=== PATIENT | female | born 1975 | race Caucasian/White ===

== ENCOUNTER 2018-09-02 08:58 | Inpatient (IN) | payer BC, MEDICAID ==
[~2018-09-02] VITALS: Ht 165.1 cm; Wt 50.9 kg
[~2018-09-02 08:58] MED LIST: SULF1TAB49 PO
[2018-09-02] MEDS ORDERED: metoclopramide 5 mg/ml inj IV ONE (09:25)
[2018-09-02] MEDS ORDERED: ketorolac tromethamine 15mg/ml inj. IV ONE (09:25)
[2018-09-02] MEDS ORDERED: normal saline 1000ML IV soln IVB ONE ×2 (09:25→11:35)
[2018-09-02 10:08] LABS: BASOPHILS % (AUTO) 0 % (0-1); EOSINOPHILS # (AUTO) 0.3 X10'3 (0-0.9); EOSINOPHILS % (AUTO) 1.4 % (0-6); HEMATOCRIT 47.5 % (35.0-45.0); HEMOGLOBIN 15.4 g/dl (12.0-16.0); LYMPHOCYTES # (AUTO) 0.5 X10'3 (1.1-4.8); LYMPHOCYTES % (AUTO) 2.6 % (21-51); MEAN CORPUSCULAR HGB CONC 32.4 % (33.0-36.5); MEAN CORPUSCULAR VOLUME 89.3 FL (78-98); MEAN PLATELET VOLUME 8.9 FL (7.4-10.4); MONOCYTES # (AUTO) 0.9 X10'3 (0-0.9); MONOCYTES % (AUTO) 4.5 % (2-12); NEUTROPHILS # (AUTO) 17.6 X10'3 (1.8-7.7); NEUTROPHILS % (AUTO) 91.5 % (42-75); PLATELET COUNT 314 X10'3 (140-440); RED BLOOD COUNT 5.32 X10'6 (4.20-5.60); RED CELL DISTRIBUTION WIDTH 13.8 % (11.5-14.5); WHITE BLOOD COUNT 19.3 X10'3 (4.5-11.0)
[2018-09-02 11:19] LABS: ALANINE AMINOTRANSFERASE 41 U/L (12-78); ALBUMIN 3.2 G/DL (3.4-5.0); ALKALINE PHOSPHATASE 84 IU/L (46-116); ANION GAP 26 (8-16); ASPARTATE AMINO TRANSFERASE 30 U/L (10-37); BILIRUBIN,TOTAL 0.9 MG/DL (0.1-1.0); BLOOD UREA NITROGEN 16 MG/DL (7-18); BUN/CREATININE RATIO 16.2 (6.6-38.0); CALCIUM 6.7 MG/DL (8.5-10.1); CHLORIDE 106 MMOL/L (99-107); CREATININE 0.99 MG/DL (0.40-0.90); GLUCOSE 326 MG/DL (70-104); LIPASE 253 U/L (73-393); POTASSIUM 5.4 MMOL/L (3.5-5.1); SODIUM 139 MMOL/L (135-145); TOTAL PROTEIN 6.5 G/DL (6.4-8.2); eGFR 61 ML/MIN
[2018-09-02 11:22] LABS: TOTAL CARBON DIOXIDE 7.5 MMOL/L (24-32)
[2018-09-02] MEDS ORDERED: iohexol 300mg/ml 100ml inj. ONE (11:28)
[2018-09-02 11:29] LABS: URINE HCG NEGATIVE (NEG)
[2018-09-02 11:32] LABS: CLARITY,URINE CLEAR (Clear); COLOR,URINE STRAW (Yellow); GLUCOSE, URINE 500 mg/dl (Neg); KETONES,URINE >=80 mg/dl (Neg); LEUKOCYTE ESTERASE ,URINE NEGATIVE (Neg); NITRITES, URINE NEGATIVE (Neg); OCCULT BLOOD,URINE MODERATE (Neg); PH,URINE 5.5 (4.8-8.0); PROTEIN,URINE 30 mg/dl (Neg); UROBILINOGEN,URINE 0.2 E.U/dL (0.2-1.0)
[2018-09-02 11:33] LABS: UA COLLECTION TYPE CLN CATCH MIDSTREAM
[2018-09-02] MEDS ORDERED: INSU100I31 SQ (11:37)
[2018-09-02 11:43] LABS: BACTERIA,URINE FEW /HPF (Neg); HYALINE CASTS 0-3 /LPF (NEGATIVE); MUCUS STRANDS NONE SEEN /LPF (Neg); RBC,URINE 0-2 /HPF (0-2); SQUAMOUS EPITHELIAL CELL,UR FEW /LPF (FEW); WBC,URINE 0-4 /HPF (0-4)
[2018-09-02 11:49] LABS: URINE AMPHETAMINE SCREEN NEGATIVE (Neg); URINE BARBITUATE SCREEN NEGATIVE (Neg); URINE BENZODIAZEPINES SCREEN NEGATIVE (Neg); URINE CANNABINOID SCREEN POSITIVE (Neg); URINE COCAINE SCREEN NEGATIVE (Neg); URINE METHADONE SCREEN NEGATIVE (Neg); URINE OPIATE SCREEN NEGATIVE (Neg); URINE PHENCYCLIDINE SCREEN NEGATIVE (Neg)
[2018-09-02 13:30] LABS: ABG BASE EXCESS -22.4 mmol/L (-2.0-3.0); ABG HCO3 3.6 mmol/L (22.0-26.0); ABG OXYGEN SATURATION 97.7 % (95-98); ABG PCO2 (T) 10.3 mmHg (32.0-45.0); ABG PH (T) 7.157 (7.350-7.450); ABG PO2 (T) 122.9 mmHg (83-108); ALLEN'S TEST Positive; FCOHb 0.3 % (0.5-1.5); FMetHb 0.3 % (0.3-1.12); FO2Hb 97.1 % (94-100); TOTAL HEMOGLOBIN 14.4 G/dl (12.0-16.0)
[2018-09-02] MEDS ORDERED: potassium CL 20mEq in D5-1/2NS 1,000 ML IV PRN ×2 (13:57→14:13)
[2018-09-02] MEDS ORDERED: sodium bicarbonate (8.4%) inj. 50 MEQ in dextrose 5% water 500ml 250 ML IV PRN (13:57)
[2018-09-02] MEDS ORDERED: insulin regular, DKA only 100 UNIT in normal saline 100ml IV soln 99 ML IV SCH ×2 (13:57)
[2018-09-02] MEDS ORDERED: sodium bicarbonate (8.4%) inj. 100 MEQ in dextrose 5% water 500ml 500 ML IV PRN (13:57)
[2018-09-02] MEDS ORDERED: potassium Cl 40MEQ/NS 500ml 500 ML IV PRN ×4 (14:00→14:15)
[2018-09-02] MEDS ORDERED: insulin regular, human vial - multi-dose IV PRN ×2 (14:00→14:15)
[2018-09-02] MEDS ORDERED: sodium phosphate inj. 30 MMOL in dextrose 5%-water 250 ML IV PRN ×2 (14:00→16:25)
[2018-09-02] MEDS ORDERED: sodium phosphate inj. 15 MMOL in dextrose 5%-water 150 ML IV PRN ×2 (14:00→16:25)
[2018-09-02] MEDS ORDERED: potassium Cl 20 mEq SR tablet PO PRN ×2 (14:00→14:15)
[2018-09-02] MEDS ORDERED: traMADol 50MG tablet PO PRN (14:15)
[2018-09-02] MEDS: normal saline 1000ml 1,000 ML IV SCH ×4 (14:27→19:21)
[2018-09-02 14:54] LABS: ALBUMIN 3.3 G/DL (3.4-5.0); ANION GAP 27 (8-16); BLOOD UREA NITROGEN 11 MG/DL (7-18); BUN/CREATININE RATIO 12.5 (6.6-38.0); CALCIUM 6.8 MG/DL (8.5-10.1); CHLORIDE 106 MMOL/L (99-107); CREATININE 0.88 MG/DL (0.40-0.90); GLUCOSE 243 MG/DL (70-104); POTASSIUM 4.5 MMOL/L (3.5-5.1); SODIUM 140 MMOL/L (135-145); eGFR 70 ML/MIN
[2018-09-02] MEDS: insulin regular, DKA only 100 UNIT in normal saline 100ml IV soln 99 ML IV SCH ×2 (14:55)
[2018-09-02 15:02] LABS: TOTAL CARBON DIOXIDE 7.1 MMOL/L (24-32)
[2018-09-02 15:03] LABS: PHOSPHORUS 0.9 MG/DL (2.3-4.5)
[2018-09-02] MEDS: dextrose 5%-1/2 normal saline 1,000 ML IV SCH ×2 (15:40→22:20)
[2018-09-02 15:43] LABS: ALBUMIN 3.3 G/DL (3.4-5.0); ANION GAP 26 (8-16); BLOOD UREA NITROGEN 10 MG/DL (7-18); CHLORIDE 105 MMOL/L (99-107); CREATININE 0.83 MG/DL (0.40-0.90); GLUCOSE 229 MG/DL (70-104); MAGNESIUM 1.4 MG/DL (1.5-2.4); SODIUM 140 MMOL/L (135-145); eGFR 75 ML/MIN
[2018-09-02 15:44] LABS: POTASSIUM 4.7 MMOL/L (3.5-5.1)
[2018-09-02 15:47] LABS: PHOSPHORUS 0.7 MG/DL (2.3-4.5); TOTAL CARBON DIOXIDE 8.6 MMOL/L (24-32)
[2018-09-02] MEDS ORDERED: Neutra Phos packet PO PRN (16:25)
[2018-09-02] MEDS: LORazepam 1 MG tablet PO PRN (16:36)
[2018-09-02] MEDS ORDERED: potassium phosphate inj 30 MMOL in dextrose 5%-water 250 ML IV PRN (16:45)
[2018-09-02] MEDS ORDERED: insulin glargine (Lantus) pen - multi-dose SQ SCH (21:00)
[2018-09-02 22:31] LABS: ALBUMIN 2.7 G/DL (3.4-5.0); ANION GAP 15 (8-16); BLOOD UREA NITROGEN 5 MG/DL (7-18); BUN/CREATININE RATIO 6.2 (6.6-38.0); CALCIUM 6.5 MG/DL (8.5-10.1); CHLORIDE 105 MMOL/L (99-107); CREATININE 0.81 MG/DL (0.40-0.90); GLUCOSE 108 MG/DL (70-104); SODIUM 139 MMOL/L (135-145); TOTAL CARBON DIOXIDE 19.3 MMOL/L (24-32); eGFR 77 ML/MIN
[2018-09-02 22:38] LABS: PHOSPHORUS 0.6 MG/DL (2.3-4.5); POTASSIUM 2.5 MMOL/L (3.5-5.1)
[2018-09-02] MEDS ORDERED: POTASSIUM PHOSPHATE IV ONE ×2 (22:50→23:40)
[2018-09-02] MEDS ORDERED: NORMAL SALINE IV ONE ×2 (22:50→23:40)
[2018-09-02 23:00] VITALS: BP 107/68
[2018-09-02] MEDS ORDERED: sodium phosphate inj. 30 MMOL in dextrose 5%-water 250 ML IV ONE (23:10)
[2018-09-03] MEDS: potassium CL 20mEq in D5-1/2NS 1,000 ML IV SCH ×5 (00:20→21:30)
[2018-09-03] MEDS: normal saline 1000ml 1,000 ML IV SCH ×3 (00:27→09:57)
[2018-09-03 03:00] VITALS: BP 106/72
[2018-09-03 03:48] LABS: BASOPHILS % (AUTO) 0.1 % (0-1); EOSINOPHILS # (AUTO) 0.1 X10'3 (0-0.9); EOSINOPHILS % (AUTO) 1.2 % (0-6); HEMATOCRIT 36.7 % (35.0-45.0); HEMOGLOBIN 12.5 g/dl (12.0-16.0); LYMPHOCYTES # (AUTO) 1.5 X10'3 (1.1-4.8); LYMPHOCYTES % (AUTO) 13.1 % (21-51); MEAN CORPUSCULAR HEMOGLOBIN 29.1 PG (27.0-31.0); MEAN CORPUSCULAR HGB CONC 34.1 % (33.0-36.5); MEAN CORPUSCULAR VOLUME 85.5 FL (78-98); MEAN PLATELET VOLUME 7.9 FL (7.4-10.4); MONOCYTES # (AUTO) 0.4 X10'3 (0-0.9); MONOCYTES % (AUTO) 3.7 % (2-12); NEUTROPHILS # (AUTO) 9.6 X10'3 (1.8-7.7); NEUTROPHILS % (AUTO) 81.9 % (42-75); PLATELET COUNT 166 X10'3 (140-440); RED CELL DISTRIBUTION WIDTH 13.7 % (11.5-14.5); WHITE BLOOD COUNT 11.8 X10'3 (4.5-11.0)
[2018-09-03] MEDS ORDERED: potassium phosphate inj 30 MMOL in dextrose 5%-water 250 ML IV ONE (04:00)
[2018-09-03 04:07] LABS: ALANINE AMINOTRANSFERASE 32 U/L (12-78); ALBUMIN 2.7 G/DL (3.4-5.0); ALBUMIN/GLOBULIN RATIO 0.9 (1.1-1.5); ALKALINE PHOSPHATASE 65 IU/L (46-116); ANION GAP 11 (8-16); ASPARTATE AMINO TRANSFERASE 29 U/L (10-37); BILIRUBIN,TOTAL 0.7 MG/DL (0.1-1.0); BLOOD UREA NITROGEN 3 MG/DL (7-18); BUN/CREATININE RATIO 4.3 (6.6-38.0); CALCIUM 6.6 MG/DL (8.5-10.1); CHLORIDE 103 MMOL/L (99-107); CREATININE 0.69 MG/DL (0.40-0.90); GLUCOSE 152 MG/DL (70-104); PHOSPHORUS 2.3 MG/DL (2.3-4.5); SODIUM 137 MMOL/L (135-145); TOTAL CARBON DIOXIDE 22.9 MMOL/L (24-32); TOTAL PROTEIN 5.7 G/DL (6.4-8.2); eGFR > 90 ML/MIN
[2018-09-03 04:11] LABS: MAGNESIUM 0.9 MG/DL (1.5-2.4); POTASSIUM 2.9 MMOL/L (3.5-5.1)
[2018-09-03] MEDS: dextrose 5%-1/2 normal saline 1,000 ML IV SCH (04:50)
[2018-09-03] MEDS ORDERED: magnesium 4gm in 100ml NS 100 ML IV PRN ×2 (04:55→12:15)
[2018-09-03] MEDS: LORazepam 1 MG tablet PO PRN (07:10)
[2018-09-03 07:35] VITALS: BP 106/73
[2018-09-03] MEDS ORDERED: K and/or MAG REPLACEMENT MC SCH (08:00)
[2018-09-03] MEDS: LIDOcaine 1% 30ml vial 5 ML in potassium Cl 40MEQ/NS 500ml 500 ML IV PRN ×2 (08:09→12:54)
[2018-09-03] MEDS: insulin regular, DKA only 100 UNIT in normal saline 100ml IV soln 99 ML IV SCH ×4 (08:10→11:23)
[2018-09-03] MEDS: K and/or MAG REPLACEMENT MC SCH (08:57)
[2018-09-03] MEDS ORDERED: potassium Cl 20 mEq SR tablet PO PRN ×2 (09:35)
[2018-09-03] MEDS ORDERED: potassium Cl 40MEQ/NS 500ml 500 ML IV PRN ×4 (09:35→12:15)
[2018-09-03 09:46] LABS: ABG BASE EXCESS -1.1 mmol/L (-2.0-3.0); ABG HCO3 20.7 mmol/L (22.0-26.0); ABG OXYGEN SATURATION 97.6 % (95-98); ABG PCO2 (T) 26.9 mmHg (32.0-45.0); ABG PH (T) 7.504 (7.350-7.450); ABG PO2 (T) 87.6 mmHg (83-108); ALLEN'S TEST Positive; FMetHb 0.1 % (0.3-1.12); FO2Hb 97.5 % (94-100); TOTAL HEMOGLOBIN 12.8 G/dl (12.0-16.0)
[2018-09-03 09:59] LABS: ALBUMIN 2.6 G/DL (3.4-5.0); ANION GAP 11 (8-16); BLOOD UREA NITROGEN 2 MG/DL (7-18); BUN/CREATININE RATIO 3.4 (6.6-38.0); CALCIUM 6.6 MG/DL (8.5-10.1); CHLORIDE 104 MMOL/L (99-107); CREATININE 0.58 MG/DL (0.40-0.90); MAGNESIUM 1.4 MG/DL (1.5-2.4); SODIUM 138 MMOL/L (135-145); TOTAL CARBON DIOXIDE 23.3 MMOL/L (24-32); eGFR > 90 ML/MIN
[2018-09-03 10:17] LABS: GLUCOSE 45 MG/DL (70-104); POTASSIUM 2.7 MMOL/L (3.5-5.1)
[2018-09-03] MEDS ORDERED: glucagon, human recombinant 1mg kit SUBCUT PRN ×2 (10:40→20:10)
[2018-09-03] MEDS ORDERED: dextrose 50%-water 50ml dispensing syringe IV PRN ×4 (10:40→20:10)
[2018-09-03] MEDS ORDERED: dextrose ORAL solution 15 GM/59 ML bottle PO PRN ×4 (10:40→20:10)
[2018-09-03] MEDS ORDERED: insulin Lispro (HumaLOG) vial - multi-dose SQ SCH (10:40)
[2018-09-03 10:58] LABS: HEMOGLOBIN A1C 10.2 % (4.5-6.2)
[2018-09-03 12:19] VITALS: BP 93/58
[2018-09-03] MEDS: magnesium hydroxide 30ml (MOM) UD suspension PO SCH ×3 (12:26→21:00)
[2018-09-03] MEDS: magnesium 1gm/100ml D5W IVPB 100 ML IV PRN ×2 (12:26→13:38)
[2018-09-03] MEDS ORDERED: NO HOME MEDS (15:08)
[2018-09-03 15:51] VITALS: BP 98/63
[2018-09-03 17:08] LABS: ALBUMIN 2.5 G/DL (3.4-5.0); ANION GAP 7 (8-16); BLOOD UREA NITROGEN 1 MG/DL (7-18); CALCIUM 6.8 MG/DL (8.5-10.1); CHLORIDE 105 MMOL/L (99-107); CREATININE 0.51 MG/DL (0.40-0.90); GLUCOSE 118 MG/DL (70-104); POTASSIUM 3.1 MMOL/L (3.5-5.1); SODIUM 137 MMOL/L (135-145); TOTAL CARBON DIOXIDE 25.4 MMOL/L (24-32); eGFR > 90 ML/MIN
[2018-09-03 17:11] LABS: PHOSPHORUS 0.7 MG/DL (2.3-4.5)
[2018-09-03] MEDS ORDERED: sodium phosphate inj. 15 MMOL in dextrose 5%-water 150 ML IV PRN (17:20)
[2018-09-03] MEDS ORDERED: sodium phosphate inj. 30 MMOL in dextrose 5%-water 250 ML IV PRN (17:20)
[2018-09-03] MEDS ORDERED: potassium phosphate inj 30 MMOL in normal saline 500ml IV soln 490 ML IV ONE (18:45)
[2018-09-03 19:00] VITALS: BP 104/63
[2018-09-03] MEDS ORDERED: insulin glargine (Lantus) pen - multi-dose SQ SCH ×2 (21:00)
[2018-09-03] MEDS: insulin Lispro (HumaLOG) vial - multi-dose SQ SCH ×2 (22:28→23:23)
[2018-09-03 23:00] VITALS: BP 99/61
[2018-09-04] VITALS (7 sets, daily range): BP systolic 96–110; BP diastolic 54–74
[2018-09-04] MEDS: potassium CL 20mEq in D5-1/2NS 1,000 ML IV SCH ×2 (02:22→17:12)
[2018-09-04 05:50] LABS: MAGNESIUM 1.8 MG/DL (1.5-2.4); PHOSPHORUS 2.5 MG/DL (2.3-4.5)
[2018-09-04] MEDS: magnesium hydroxide 30ml (MOM) UD suspension PO SCH ×4 (07:14→20:04)
[2018-09-04] MEDS: potassium Cl 20 mEq SR tablet PO PRN ×2 (07:15→12:28)
[2018-09-04 07:20] LABS: PHOSPHORUS 2.1 MG/DL (2.3-4.5)
[2018-09-04] MEDS: K and/or MAG REPLACEMENT MC SCH (08:21)
[2018-09-04 08:22] LABS: BASOPHILS % (AUTO) 0.3 % (0-1); EOSINOPHILS % (AUTO) 0.2 % (0-6); HEMATOCRIT 37.8 % (35.0-45.0); HEMOGLOBIN 12.6 g/dl (12.0-16.0); LYMPHOCYTES # (AUTO) 1.5 X10'3 (1.1-4.8); LYMPHOCYTES % (AUTO) 29.7 % (21-51); MEAN CORPUSCULAR HEMOGLOBIN 29.2 PG (27.0-31.0); MEAN CORPUSCULAR HGB CONC 33.4 % (33.0-36.5); MEAN CORPUSCULAR VOLUME 87.3 FL (78-98); MONOCYTES # (AUTO) 0.3 X10'3 (0-0.9); MONOCYTES % (AUTO) 5.5 % (2-12); NEUTROPHILS # (AUTO) 3.3 X10'3 (1.8-7.7); NEUTROPHILS % (AUTO) 64.3 % (42-75); PLATELET COUNT 129 X10'3 (140-440); RED BLOOD COUNT 4.33 X10'6 (4.20-5.60); RED CELL DISTRIBUTION WIDTH 13.5 % (11.5-14.5); WHITE BLOOD COUNT 5.2 X10'3 (4.5-11.0)
[2018-09-04 08:33] LABS: ALBUMIN 2.5 G/DL (3.4-5.0); ANION GAP 7 (8-16); BLOOD UREA NITROGEN 2 MG/DL (7-18); CALCIUM 7.8 MG/DL (8.5-10.1); CHLORIDE 103 MMOL/L (99-107); GLUCOSE 167 MG/DL (70-104); POTASSIUM 3.2 MMOL/L (3.5-5.1); SODIUM 138 MMOL/L (135-145); TOTAL CARBON DIOXIDE 27.9 MMOL/L (24-32); eGFR > 90 ML/MIN
[2018-09-04] MEDS: Neutra Phos packet PO PRN ×3 (08:40→17:07)
[2018-09-04] MEDS: insulin Lispro (HumaLOG) vial - multi-dose SQ SCH (08:40)
[2018-09-04] MEDS ORDERED: potassium cl 20mEq in 1/2 NS 1,000 ML IV SCH (13:30)
[2018-09-04] MEDS ORDERED: insulin regular, DKA only 100 UNIT in normal saline 100ml IV soln 99 ML IV SCH ×2 (13:40)
[2018-09-04 13:46] LABS: ABG BASE EXCESS 5.3 mmol/L (-2.0-3.0); ABG HCO3 28.1 mmol/L (22.0-26.0); ABG OXYGEN SATURATION 97.8 % (95-98); ABG PCO2 (T) 35.5 mmHg (32.0-45.0); ABG PH (T) 7.517 (7.350-7.450); ABG PO2 (T) 98.6 mmHg (83-108); ALLEN'S TEST Positive; FMetHb 0.1 % (0.3-1.12); FO2Hb 97.7 % (94-100); TOTAL HEMOGLOBIN 13.3 G/dl (12.0-16.0)
[2018-09-04] MEDS: ondansetron/PF 4mg/2ml inj IV PRN (14:36)
[2018-09-04] MEDS: LORazepam 1 MG tablet PO PRN (18:19)
[2018-09-05] MEDS: potassium CL 20mEq in D5-1/2NS 1,000 ML IV SCH (01:19)
[2018-09-05] MEDS ORDERED: MESSAGE TO PHARMACY PO ONE (01:25)
[2018-09-05] MEDS ORDERED: dextrose ORAL solution 15 GM/59 ML bottle PO PRN ×2 (01:25)
[2018-09-05] MEDS ORDERED: dextrose 50%-water 50ml dispensing syringe IV PRN ×2 (01:25)
[2018-09-05] MEDS ORDERED: glucagon, human recombinant 1mg kit SUBCUT PRN (01:25)
[2018-09-05] MEDS: ondansetron/PF 4mg/2ml inj IV PRN ×2 (01:27→14:13)
[2018-09-05 02:00] VITALS: BP 99/65
[2018-09-05] MEDS: potassium Cl 20mEq in NS 1,000 ML IV SCH ×2 (02:14→11:49)
[2018-09-05] MEDS: LORazepam 1 MG tablet PO PRN ×3 (02:16→21:59)
[2018-09-05 06:00] VITALS: BP 98/59
[2018-09-05 06:38] LABS: PHOSPHORUS 2.8 MG/DL (2.3-4.5); POTASSIUM 4.3 MMOL/L (3.5-5.1)
[2018-09-05] MEDS: magnesium hydroxide 30ml (MOM) UD suspension PO SCH ×4 (08:00→21:00)
[2018-09-05] MEDS: K and/or MAG REPLACEMENT MC SCH (08:00)
[2018-09-05] MEDS: insulin Lispro (HumaLOG) vial - multi-dose SQ SCH ×3 (08:43→19:19)
[2018-09-05 11:00] VITALS: BP 108/65
[2018-09-05] MEDS ORDERED: magnesium Cl slow-release 64mg tablet PO PRN (14:30)
[2018-09-05 15:00] VITALS: BP 106/72
[2018-09-05 16:21] LABS: ALBUMIN 2.4 G/DL (3.4-5.0); ANION GAP 3 (8-16); BLOOD UREA NITROGEN 2 MG/DL (7-18); BUN/CREATININE RATIO 4.1 (6.6-38.0); CHLORIDE 103 MMOL/L (99-107); CREATININE 0.49 MG/DL (0.40-0.90); GLUCOSE 207 MG/DL (70-104); SODIUM 136 MMOL/L (135-145); TOTAL CARBON DIOXIDE 30.3 MMOL/L (24-32); eGFR > 90 ML/MIN
[2018-09-05 19:00] VITALS: BP 105/65
[2018-09-05] MEDS ORDERED: insulin glargine (Lantus) pen - multi-dose SQ SCH (21:00)
[2018-09-05 23:00] VITALS: BP 113/79
[2018-09-06] MEDS: potassium Cl 20mEq in NS 1,000 ML IV SCH ×2 (00:22→07:30)
[2018-09-06 03:00] VITALS: BP 119/84
[2018-09-06 06:00] VITALS: BP 108/70
[2018-09-06 07:14] LABS: ALBUMIN 2.3 G/DL (3.4-5.0); ANION GAP 3 (8-16); BLOOD UREA NITROGEN 2 MG/DL (7-18); BUN/CREATININE RATIO 4.7 (6.6-38.0); CALCIUM 8.5 MG/DL (8.5-10.1); CHLORIDE 105 MMOL/L (99-107); CREATININE 0.43 MG/DL (0.40-0.90); GLUCOSE 126 MG/DL (70-104); PHOSPHORUS 3.5 MG/DL (2.3-4.5); POTASSIUM 3.8 MMOL/L (3.5-5.1); SODIUM 138 MMOL/L (135-145); TOTAL CARBON DIOXIDE 29.7 MMOL/L (24-32); eGFR > 90 ML/MIN
[2018-09-06] MEDS: K and/or MAG REPLACEMENT MC SCH (08:00)
[2018-09-06] MEDS: magnesium hydroxide 30ml (MOM) UD suspension PO SCH ×2 (08:00→13:00)
[2018-09-06] MEDS: insulin Lispro (HumaLOG) vial - multi-dose SQ SCH ×2 (09:34→13:34)
[2018-09-06] MEDS ORDERED: LANTUS SQ (10:02)
[2018-09-06] MEDS ORDERED: INSU100V11 SQ (10:02)
[2018-09-06 11:00] VITALS: BP 109/73
[2018-09-06 15:00] VITALS: BP 114/74
== END 2018-09-06 16:00 | disposition home or self-care (01) | DRG 420 ==
LOC: ER 08:58 → ED HOLD 15:45 → PCU 3S 20:40
PROVIDERS: ADMIT Internal Medicine Critical Care Medicine; ATTEND Internal Medicine
PROC: BW211ZZ Computerized Tomography (CT Scan) of Abdomen and Pelvis using Low Osmolar Contrast (ICD-10-PCS; principal; 2018-09-02)
DX: E11.10 Type 2 diabetes mellitus with ketoacidosis without coma (principal); E87.3 Alkalosis; E83.39 Other disorders of phosphorus metabolism; E87.5 Hyperkalemia; D72.829 Elevated white blood cell count, unspecified; S90.32XA Contusion of left foot, initial encounter; E86.0 Dehydration; E87.6 Hypokalemia; X58.XXXA Exposure to other specified factors, initial encounter; F41.9 Anxiety disorder, unspecified; I10 Essential (primary) hypertension; Z79.4 Long term (current) use of insulin; Z98.891 History of uterine scar from previous surgery; Z81.1 Family history of alcohol abuse and dependence; Z79.899 Other long term (current) drug therapy; Y93.89 Activity, other specified; Y92.89 Other specified places as the place of occurrence of the external cause; Y99.8 Other external cause status
CPT/HCPCS: 36415; 36600; 71045; 74177; 80048; 80053; 80305; 81001; 81025; 82803; 82948; 83036; 83605; 83690; 83735; 84100; 84132; 85018; 85025; 87040; 87070; 97116; 97161; 97530; G0378; J1815; J1885; J2405; J2765; J3475; J3480; J3490; J7030; J7060; Q9967

== ENCOUNTER 2018-09-30 20:00 | Emergency (ER) | payer MEDICAID ==
[~2018-09-30] VITALS: Ht 165.1 cm; Wt 54.5 kg
[~2018-09-30 20:00] MED LIST changes: +INSU100V11 SQ; +LANTUS SQ; -SULF1TAB49 PO
[2018-09-30] MEDS ORDERED: dexamethasone sod phosphate 10mg/ml inj IV STA (20:11)
[2018-09-30] MEDS ORDERED: ondansetron/PF 4mg/2ml inj IV ONE (20:15)
[2018-09-30] MEDS ORDERED: normal saline 1000ML IV soln IVB ONE (20:15)
[2018-09-30 20:33] LABS: BASOPHILS % (AUTO) 0.2 % (0-1); EOSINOPHILS # (AUTO) 0.1 X10'3 (0-0.9); EOSINOPHILS % (AUTO) 1.1 % (0-6); HEMATOCRIT 44.9 % (35.0-45.0); HEMOGLOBIN 14.6 g/dl (12.0-16.0); LYMPHOCYTES # (AUTO) 2.4 X10'3 (1.1-4.8); LYMPHOCYTES % (AUTO) 27.3 % (21-51); MEAN CORPUSCULAR HEMOGLOBIN 28.3 PG (27.0-31.0); MEAN CORPUSCULAR HGB CONC 32.6 % (33.0-36.5); MEAN CORPUSCULAR VOLUME 86.9 FL (78-98); MEAN PLATELET VOLUME 7.5 FL (7.4-10.4); MONOCYTES # (AUTO) 0.4 X10'3 (0-0.9); MONOCYTES % (AUTO) 4.7 % (2-12); NEUTROPHILS # (AUTO) 5.9 X10'3 (1.8-7.7); NEUTROPHILS % (AUTO) 66.7 % (42-75); PLATELET COUNT 350 X10'3 (140-440); RED BLOOD COUNT 5.17 X10'6 (4.20-5.60); RED CELL DISTRIBUTION WIDTH 14.7 % (11.5-14.5); WHITE BLOOD COUNT 8.9 X10'3 (4.5-11.0)
[2018-09-30 20:45] LABS: ALANINE AMINOTRANSFERASE 51 U/L (12-78); ALBUMIN 3.5 G/DL (3.4-5.0); ALBUMIN/GLOBULIN RATIO 0.9 (1.1-1.5); ALKALINE PHOSPHATASE 100 IU/L (46-116); ANION GAP 10 (8-16); ASPARTATE AMINO TRANSFERASE 70 U/L (10-37); BILIRUBIN,TOTAL 0.4 MG/DL (0.1-1.0); BLOOD UREA NITROGEN 7 MG/DL (7-18); BUN/CREATININE RATIO 11.7 (6.6-38.0); CALCIUM 8.7 MG/DL (8.5-10.1); CHLORIDE 105 MMOL/L (99-107); GLUCOSE 118 MG/DL (70-104); SODIUM 146 MMOL/L (135-145); TOTAL CARBON DIOXIDE 30.8 MMOL/L (24-32); TOTAL PROTEIN 7.2 G/DL (6.4-8.2); eGFR > 90 ML/MIN
[2018-09-30 20:47] LABS: POTASSIUM 2.7 MMOL/L (3.5-5.1)
[2018-09-30] MEDS ORDERED: potassium Cl 20 mEq SR tablet PO STA (21:35)
[2018-09-30] MEDS ORDERED: POTA20TA19 PO (21:46)
[2018-09-30 23:08] VITALS: BP 130/88
== END 2018-09-30 23:08 | disposition home or self-care (01) ==
LOC: ER 20:01
DX: E11.649 Type 2 diabetes mellitus with hypoglycemia without coma (principal); E87.6 Hypokalemia; I10 Essential (primary) hypertension; F12.90 Cannabis use, unspecified, uncomplicated; Z98.890 Other specified postprocedural states; Z79.4 Long term (current) use of insulin
CPT/HCPCS: 36415; 80053; 82948; 85025; 96361; 96374; 96375; 99284; J1100; J2405; J7030

== ENCOUNTER 2019-02-15 11:44 | Inpatient (IN) | payer MEDICAID | END 2019-02-18 09:45 | disposition home or self-care (01) | LOC: ER 11:44 → PCU 3S 02-16 16:42 ==

== ENCOUNTER 2019-07-11 19:08 | Inpatient (IN) | payer MEDICAID ==
[~2019-07-11] VITALS: Ht 162.6 cm; Wt 82.2 kg
[~2019-07-11 19:08] MED LIST changes: +GLIM2TAB3 PO; -INSU100V11 SQ; -LANTUS SQ; +METF-436 PO; +ciprofloxacin lact 400MG/200ML 200 ML IV ONE
--- NOTE | 2019-07-11 19:15 | NUR ---
PT INTUBATED WITH 8.0 ET TUBE - MEDS USED 20 ETOMIDATE AND 100 ROCURONIUM - PT HAD BROKEN TOOTH PRIOR TO INTUBATION
[2019-07-11] MEDS ORDERED: midazolam 100mg in NS 100ml 100 ML IV PRN ×2 (19:23→22:29)
[2019-07-11] MEDS ORDERED: famotidine/PF 10 mg/ml inj IV ONE (19:35)
[2019-07-11] MEDS ORDERED: pantoprazole 40 MG vial IV ONE (19:35)
[2019-07-11] MEDS ORDERED: pantoprazole 40MG/NS 100ML BAG 100 ML IV SCH (19:35)
--- NOTE | 2019-07-11 19:35 | NUR ---
1909 [facility] ARRIVED CODE 3 USING AMBU BAG FOR RESPIRATORY DEPRESSION. PT WITH SLIGHT GROAN WHEN TRANSFERRED FROM [facility] TO ER [facility]. PT THEN IMMEDIATELY INTUBATED. 1934 DR. DAVIS AT BEDSIDE PLACING CENTRAL LINE (QUAD LUMAN) IN RIGHT IJ. USING US 1939 RT VALORIE REPORTING ABG RESULTS: PH 6.7, BICARB 3. [address] DAVIS FOR 2 AMPS SODIUM BICARB. 1944 2 AMPS SODIUM BICARB PUSHED. NOW PREPARING FOR ART LINE PLACEMENT.
[2019-07-11 19:40] LABS: ABG BASE EXCESS -31.9 mmol/L (-2.0-3.0); ABG HCO3 3.1 mmol/L (22.0-26.0); ABG OXYGEN SATURATION 98.9 % (95-98); ABG PH (T) 6.741 (7.350-7.450); ABG PO2 (T) 281.2 mmHg (83-108); ALLEN'S TEST Positive; FCOHb 0.3 % (0.5-1.5); FMetHb 0.4 % (0.3-1.12); FO2Hb 98.2 % (94-100); MINUTE VOLUME 6 L/min; PATIENT TEMPERATURE 34.4; PEEP 5 cm H2O; RESPIRATORY RATE 16 b/min; RESPIRATORY RATE (OBSERVED) 16 b/min; TIDAL VOLUME 400 mL; TOTAL HEMOGLOBIN 10.8 G/dl (12.0-16.0)
[2019-07-11 19:54] LABS: PARTIAL THROMBOPLASTIN TIME 68 SECONDS (22-32)
[2019-07-11] MEDS ORDERED: sodium bicarbonate (8.4%) 1 mEq/ml syringe IV ONE ×2 (20:00→23:30)
[2019-07-11] MEDS ORDERED: normal saline 1000ML IV soln IVB ONE (20:00)
[2019-07-11] MEDS ORDERED: NORepinephrine 8mg/ 250ml NS 250 ML IV SCH (20:00)
--- NOTE | 2019-07-11 20:14 | NUR ---
ART LINE NOW IN PLACE TO LEFT GROIN. CURRENT PB 91/44 , HR 112
[2019-07-11] MEDS ORDERED: sodium bicarbonate (8.4%) inj. 1 MEQ/ML ML IV ONE (20:15)
[2019-07-11 20:16] LABS: LACTIC SEPSIS 14.6 MMOL/L (0.4-2.0)
[2019-07-11 20:27] LABS: ALANINE AMINOTRANSFERASE 290 U/L (12-78); ALBUMIN 2.5 G/DL (3.4-5.0); ALKALINE PHOSPHATASE 116 IU/L (46-116); BILIRUBIN,TOTAL 4.4 MG/DL (0.1-1.0); BLOOD UREA NITROGEN 21 MG/DL (7-18); BUN/CREATININE RATIO 6.3 (6.6-38.0); CALCIUM 6.4 MG/DL (8.5-10.1); CHLORIDE 90 MMOL/L (99-107); CREATININE 3.33 MG/DL (0.40-0.90); ETHANOL 0.135 GM/DL (0.0-0.010); GLUCOSE 198 MG/DL (70-104); MAGNESIUM 2.2 MG/DL (1.5-2.4); SODIUM 131 MMOL/L (135-145); eGFR 15 ML/MIN
[2019-07-11] MEDS ORDERED: CefTRIAXone 2gm/D5W 50ml 50 ML IV ONE (20:30)
[2019-07-11] MEDS ORDERED: vancomycin/NS 1 GM ADD-VANTAGE 250 ML IV ONE (20:30)
[2019-07-11] MEDS ORDERED: normal saline 1000ML IV soln IV ONE (20:30)
[2019-07-11] MEDS ORDERED: DOPamine 400mg/D5W 250ml 250 ML IV SCH (20:30)
[2019-07-11 20:35] LABS: ASPARTATE AMINO TRANSFERASE 1156 U/L (10-37); CKMB RELATIVE INDEX 2.4 RATIO (0-2.5); CREATINE KINASE 1039 U/L (26-192)
[2019-07-11 20:44] LABS: ALBUMIN/GLOBULIN RATIO 0.8 (1.1-1.5); ANION GAP 36 (8-16); PHOSPHORUS 11.3 MG/DL (2.3-4.5); TOTAL PROTEIN 5.5 G/DL (6.4-8.2)
[2019-07-11 20:46] LABS: ACETAMINOPHEN < 2.0 UG/ML (10-30)
[2019-07-11 20:46] LABS: GASTRIC OCCULT BLOOD POSITIVE (Neg)
[2019-07-11 20:48] LABS: POTASSIUM 6.9 MMOL/L (3.5-5.1); TOTAL CARBON DIOXIDE < 5 MMOL/L (24-32)
[2019-07-11 20:56] LABS: URINE AMPHETAMINE SCREEN NEGATIVE (Neg); URINE BARBITUATE SCREEN NEGATIVE (Neg); URINE BENZODIAZEPINES SCREEN NEGATIVE (Neg); URINE CANNABINOID SCREEN NEGATIVE (Neg); URINE COCAINE SCREEN NEGATIVE (Neg); URINE METHADONE SCREEN NEGATIVE (Neg); URINE OPIATE SCREEN NEGATIVE (Neg); URINE PHENCYCLIDINE SCREEN NEGATIVE (Neg)
[2019-07-11 21:01] LABS: CLARITY,URINE CLOUDY (Clear); COLOR,URINE YELLOW (Yellow); GLUCOSE, URINE NEGATIVE (Neg); KETONES,URINE 15 mg/dl (Neg); LEUKOCYTE ESTERASE ,URINE NEGATIVE (Neg); NITRITES, URINE NEGATIVE (Neg); OCCULT BLOOD,URINE LARGE (Neg); PROTEIN,URINE 100 mg/dl (Neg); UA COLLECTION TYPE STRAIGHT CATH
[2019-07-11 21:08] LABS: SQUAMOUS EPITHELIAL CELL,UR FEW /LPF (FEW); TRANSITIONAL EPI CELLS,URINE FEW /HPF
[2019-07-11 21:10] LABS: AMORPHOUS URATES 2+
[2019-07-11 21:12] LABS: BACTERIA,URINE FEW /HPF (Neg); RBC,URINE 0-2 /HPF (0-2); WBC,URINE 0-4 /HPF (0-4)
[2019-07-11 21:13] LABS: MUCUS STRANDS MODERATE /LPF (Neg)
[2019-07-11 21:47] LABS: URINE HCG NEGATIVE (NEG)
[2019-07-11 22:06] LABS: ISTAT CREATININE 2.9 mg/dL (0.6-1.1); ISTAT HGB 14.6 g/dl (12.0-16.0); ISTAT IONIZED CALCIUM 0.72 mmol/L (1.03-1.32); POC BUN/CREATININE RATIO 7.2 (6.6-38.0)
--- NOTE | 2019-07-11 22:24 | NUR ---
BRITTANY STEVENS, REPORTS SHE IS PT'S DAUGHTER, CALLING FOR UPDATED. INFORMED THAT SHE IS NOT LISTED A CONTACT AND I CANNOT GIVEN HER ANY INFORMATION. UPDATED THAT PT IS VERY SICK AND WILL BE ADMITTED TO ICU SHORTLY. I TOLD HER SHE COULD COME TO VISIT ANYTIME. SHE STATED SHE WOULD COME DOWN TO SEE HER TOMORROW. I ASKED IF SHE WANTED TO LEAVE HER PHONE NUMBER OR IF SHE KNEW WHO THAT NEXT OF KIN WERE THAT WE WOULD CONTACT. SHE STATED NO AND THAT IF HER MOTHER WANTED US TO HAVE ANY ADTL EMERGENCY NUMBERS FOR HER SHE WOULD FIND OUT FROM HER TOMORROW WHEN SHE VISITS. SHE REPORTS SHE WAS NOT AROUND WHEN PT WAS TAKEN BY AMBULANCE TO HOSPITAL.
[2019-07-11] MEDS ORDERED: FENTANYL-0.9 % NACL/PF 100 ML IV PRN (22:29)
[2019-07-11] MEDS ORDERED: DOPamine 400mg/D5W 250ml 250 ML IV PRN (22:29)
[2019-07-11] MEDS ORDERED: normal saline 1000ml 1,000 ML IV PRN (22:29)
[2019-07-11] MEDS ORDERED: acetaminophen 325mg tablet PO PRN (22:30)
[2019-07-11] MEDS ORDERED: MESSAGE TO PHARMACY PO ONE (22:30)
[2019-07-11] MEDS ORDERED: glucagon, human recombinant 1mg kit SUBCUT PRN (22:30)
[2019-07-11] MEDS: sodium bicarbonate inj. 75 ML in dextrose 5% water 500ml 500 ML IV SCH ×3 (22:30→22:42)
[2019-07-11] MEDS ORDERED: acetaminophen 650mg rectal suppository RC PRN (22:30)
[2019-07-11] MEDS ORDERED: insulin Lispro (HumaLOG) vial - multi-dose SQ SCH (22:30)
[2019-07-11] MEDS ORDERED: albuterol 2.5 MG/3 ML nebule NEB PRN (22:30)
[2019-07-11] MEDS ORDERED: thiamine 100mg/ml 2ml inj. IV ONE (22:30)
[2019-07-11] MEDS ORDERED: dextrose ORAL solution 15 GM/59 ML bottle PO PRN ×2 (22:30)
[2019-07-11] MEDS ORDERED: ondansetron/PF 4mg/2ml inj IV PRN (22:30)
[2019-07-11] MEDS ORDERED: metroNIDAZOLE-Flagyl 500mg/NS 100 ML IV STA (22:32)
[2019-07-11 22:42] LABS: ISTAT K 6.2 mmol/L (3.5-5.1)
[2019-07-11] MEDS ORDERED: ciprofloxacin lact 400MG/200ML 200 ML IV ONE (22:50)
[2019-07-11 22:52] LABS: ALANINE AMINOTRANSFERASE 310 U/L (12-78); ALBUMIN 2.9 G/DL (3.4-5.0); ALKALINE PHOSPHATASE 151 IU/L (46-116); BLOOD UREA NITROGEN 19 MG/DL (7-18); BUN/CREATININE RATIO 7.3 (6.6-38.0); CREATININE 2.59 MG/DL (0.40-0.90); GLUCOSE 158 MG/DL (70-104); MAGNESIUM 1.9 MG/DL (1.5-2.4); eGFR 20 ML/MIN
[2019-07-11 22:57] LABS: HEMATOCRIT 41.5 % (35.0-45.0); HEMOGLOBIN 13.3 g/dl (12.0-16.0); MEAN CORPUSCULAR HEMOGLOBIN 29.3 PG (27.0-31.0); MEAN CORPUSCULAR VOLUME 91.8 FL (78-98); MEAN PLATELET VOLUME 7.3 FL (7.4-10.4); PLATELET COUNT 71 X10'3 (140-440); RED BLOOD COUNT 4.52 X10'6 (4.20-5.60); RED CELL DISTRIBUTION WIDTH 17.6 % (11.5-14.5)
[2019-07-11 23:05] LABS: EOSINOPHILS % (AUTO) 0 % (0-6); LYMPHOCYTES % (AUTO) 15.3 % (21-51); MONOCYTES % (AUTO) 6.4 % (2-12); NEUTROPHILS # (AUTO) 13.2 X10'3 (1.8-7.7); NEUTROPHILS % (AUTO) 77.3 % (42-75); WHITE BLOOD COUNT 17.1 X10'3 (4.5-11.0)
--- NOTE | 2019-07-11 23:05 | NUR ---
TRI WAS TIMED FOR 0800 THIS AM - CALLED PHARMACY TO RETIME
[2019-07-11 23:06] LABS: BASOPHILS # (AUTO) 0.1 X10'3 (0-0.2); LYMPHOCYTES # (AUTO) 2.6 X10'3 (1.1-4.8); MONOCYTES # (AUTO) 1.1 X10'3 (0-0.9)
[2019-07-11 23:07] LABS: ISTAT TCO2 CONFIRMATION 6.4 mmol/l
[2019-07-11 23:10] LABS: ABG HCO3 4.3 mmol/L (22.0-26.0); ABG OXYGEN SATURATION 96.9 % (95-98); ABG PCO2 (T) 21.7 mmHg (35.0-45.0); ABG PH (T) 6.896 (7.350-7.450); ABG PO2 (T) 124.5 mmHg (83-108); FCOHb 0.3 % (0.5-1.5); FMetHb 0.4 % (0.3-1.12); FO2Hb 96.2 % (94-100); MINUTE VOLUME 7 L/min; PATIENT TEMPERATURE 34.2; RESPIRATORY RATE 16 b/min; RESPIRATORY RATE (OBSERVED) 16 b/min; TIDAL VOLUME 400 mL; TOTAL HEMOGLOBIN 11.2 G/dl (12.0-16.0)
--- NOTE | 2019-07-11 23:10 | NUR ---
LATE ENTRY - UNK TIME - RT PULLED TUBE BACK TO 20 AT THE TEETH PER MD DAVIS
[2019-07-11 23:12] LABS: ALBUMIN/GLOBULIN RATIO 0.9 (1.1-1.5); ANION GAP 43 (8-16); CHLORIDE 91 MMOL/L (99-107); PHOSPHORUS 8.4 MG/DL (2.3-4.5); SODIUM 140 MMOL/L (135-145)
[2019-07-11 23:16] LABS: OXYGEN SATURATION (MIXED VEN) 86.6 % (60-80); PO2 MIXED VENOUS (TEMP COR) 62.8 mmHg (35-46)
[2019-07-11 23:16] LABS: POTASSIUM 6.4 MMOL/L (3.5-5.1)
[2019-07-11 23:17] LABS: CALCIUM 5.6 MG/DL (8.5-10.1); TOTAL CARBON DIOXIDE 6.4 MMOL/L (24-32)
[2019-07-11 23:18] LABS: ASPARTATE AMINO TRANSFERASE 1414 U/L (10-37)
[2019-07-11 23:23] LABS: HEMOGLOBIN A1C 7.7 % (4.5-6.2)
[2019-07-11] MEDS ORDERED: albuterol 2.5 MG/3 ML nebule CONTNEB ONE (23:30)
[2019-07-11] MEDS ORDERED: dextrose 50%-water 50ml dispensing syringe IV ONE (23:30)
[2019-07-11] MEDS ORDERED: insulin regular, human 10 units/0.1 ml syringe IV ONE (23:30)
[2019-07-11] MEDS ORDERED: calcium chloride inj. 1,000 MG in normal saline 100ml IV soln 90 ML IV ONE (23:30)
[2019-07-11] MEDS ORDERED: calcium chloride 100 MG/1 ML inj IV ONE (23:35)
[2019-07-11 23:39] LABS: AMYLASE 56 U/L (25-115); LIPASE 360 U/L (73-393)
--- NOTE | 2019-07-11 23:45 | NUR ---
Received patient in room CICU 2011. I have received report from MILK TRUCK DRIVER and had the opportunity to ask questions and assume patient care.
[2019-07-11] MEDS: ipratropium/albuterol 3ml nebule NEB SCH (23:50)
[2019-07-12] VITALS (24 sets, daily range): BP systolic 93–130; BP diastolic 36–83
[2019-07-12 00:10] LABS: TOTAL CELLS COUNTED 100
[2019-07-12 00:11] LABS: ANISOCYTOSIS 1+; HYPOCHROMASIA 1+; PLATELET ESTIMATE DECREASED
[2019-07-12 01:11] LABS: TOTAL PROTEIN,URINE RANDOM 240.4 MG/DL
[2019-07-12] MEDS: pantoprazole 40MG/NS 100ML BAG 100 ML IV SCH ×5 (01:44→21:37)
[2019-07-12] MEDS: lactulose 20gm/30ml cup PO SCH ×4 (02:08→20:00)
[2019-07-12] MEDS: octreotide inj. 1,250 MCG in normal saline 250ml IV soln 243.75 ML IV SCH (02:38)
[2019-07-12 02:47] LABS: UA EOSINOPHILS NO EOS /HPF
[2019-07-12] MEDS: NORepinephrine 8mg/ 250ml NS 250 ML IV PRN (02:48)
[2019-07-12 02:50] LABS: HEMOGLOBIN 10.4 g/dl (12.0-16.0)
[2019-07-12 02:52] LABS: BASOPHILS # (AUTO) 0.1 X10'3 (0-0.2); BASOPHILS % (AUTO) 0.6 % (0-1); EOSINOPHILS % (AUTO) 0.1 % (0-6); HEMATOCRIT 33.4 % (35.0-45.0); LYMPHOCYTES # (AUTO) 1.4 X10'3 (1.1-4.8); LYMPHOCYTES % (AUTO) 13.1 % (21-51); MEAN CORPUSCULAR HEMOGLOBIN 29.2 PG (27.0-31.0); MEAN CORPUSCULAR HGB CONC 31.2 g/dL (33.0-36.5); MEAN CORPUSCULAR VOLUME 93.5 FL (78-98); MEAN PLATELET VOLUME 8.6 FL (7.4-10.4); MONOCYTES # (AUTO) 0.3 X10'3 (0-0.9); MONOCYTES % (AUTO) 3.3 % (2-12); NEUTROPHILS # (AUTO) 8.6 X10'3 (1.8-7.7); NEUTROPHILS % (AUTO) 82.9 % (42-75); PLATELET COUNT 56 X10'3 (140-440); RED BLOOD COUNT 3.58 X10'6 (4.20-5.60); WHITE BLOOD COUNT 10.4 X10'3 (4.5-11.0)
[2019-07-12 03:02] LABS: PARTIAL THROMBOPLASTIN TIME 51 SECONDS (22-32)
[2019-07-12 03:17] LABS: ALANINE AMINOTRANSFERASE 331 U/L (12-78); ALKALINE PHOSPHATASE 125 IU/L (46-116); AMYLASE 46 U/L (25-115); ANION GAP 32 (8-16); BLOOD UREA NITROGEN 18 MG/DL (7-18); BUN/CREATININE RATIO 6.9 (6.6-38.0); CALCIUM 6.2 MG/DL (8.5-10.1); CHLORIDE 100 MMOL/L (99-107); CREATININE 2.59 MG/DL (0.40-0.90); GLUCOSE 314 MG/DL (70-104); LIPASE 289 U/L (73-393); MAGNESIUM 1.6 MG/DL (1.5-2.4); POTASSIUM 4.4 MMOL/L (3.5-5.1); SODIUM 140 MMOL/L (135-145); TROPONIN I 0.43 NG/ML (0.0-0.05); eGFR 20 ML/MIN
[2019-07-12 03:22] LABS: ALBUMIN/GLOBULIN RATIO 0.8 (1.1-1.5); ASPARTATE AMINO TRANSFERASE 1251 U/L (10-37); PHOSPHORUS 6.7 MG/DL (2.3-4.5); TOTAL PROTEIN 4.5 G/DL (6.4-8.2)
[2019-07-12] MEDS: ipratropium/albuterol 3ml nebule NEB SCH ×6 (03:23→23:08)
[2019-07-12 03:24] LABS: TOTAL CARBON DIOXIDE 8.1 MMOL/L (24-32)
[2019-07-12] MEDS ORDERED: calcium chloride 100 MG/1 ML inj IV ONE (03:25)
[2019-07-12] MEDS: sodium bicarbonate inj. 75 ML in dextrose 5% water 500ml 500 ML IV SCH ×5 (03:35→20:37)
[2019-07-12] MEDS ORDERED: normal saline 500ml IV soln 500 ML IV ONE (03:35)
[2019-07-12 03:45] LABS: ABG BASE EXCESS -20.9 mmol/L (-2.0-3.0); ABG HCO3 7.9 mmol/L (22.0-26.0); ABG OXYGEN SATURATION 95.4 % (95-98); ABG PCO2 (T) 26.7 mmHg (35.0-45.0); ABG PH (T) 7.082 (7.350-7.450); ABG PO2 (T) 82.9 mmHg (83-108); FCOHb 0.3 % (0.5-1.5); FMetHb 0.2 % (0.3-1.12); FO2Hb 94.9 % (94-100); MINUTE VOLUME 6 L/min; PATIENT TEMPERATURE 35.9; PEEP 5 cm H2O; RESPIRATORY RATE 16 b/min; RESPIRATORY RATE (OBSERVED) 16 b/min; TIDAL VOLUME 400 mL; TOTAL HEMOGLOBIN 11.8 G/dl (12.0-16.0)
[2019-07-12 03:45] LABS: CREATINE KINASE 21082 U/L (26-192)
[2019-07-12] MEDS ORDERED: sodium bicarbonate (8.4%) inj. 1 MEQ/ML ML IV ONE (04:15)
[2019-07-12 06:16] LABS: ANION GAP 29 (8-16); BLOOD UREA NITROGEN 18 MG/DL (7-18); CALCIUM 6.5 MG/DL (8.5-10.1); CHLORIDE 100 MMOL/L (99-107); CREATININE 2.56 MG/DL (0.40-0.90); GLUCOSE 351 MG/DL (70-104); SODIUM 139 MMOL/L (135-145); eGFR 20 ML/MIN
[2019-07-12 06:17] LABS: POTASSIUM 3.8 MMOL/L (3.5-5.1)
--- NOTE | 2019-07-12 06:40 | NUR ---
Problems reprioritized. Patient report given, questions answered & plan of care reviewed with CONSTANTINE Sotelo and CONSTANTINE Portillo.
[2019-07-12 06:47] LABS: TOTAL CARBON DIOXIDE 9.9 MMOL/L (24-32)
[2019-07-12] MEDS ORDERED: insulin Lispro (HumaLOG) vial - multi-dose SQ PRN (07:10)
[2019-07-12] MEDS ORDERED: dextrose 50%-water 50ml dispensing syringe IV PRN (07:10)
[2019-07-12] MEDS ORDERED: etomidate 2mg/ml inj. ONE (08:00)
[2019-07-12] MEDS ORDERED: DOBUTamine/D5W 500mg/250ml premix IV ONE (08:00)
[2019-07-12] MEDS ORDERED: rocuronium 10mg/ml inj IV ONE (08:00)
[2019-07-12] MEDS ORDERED: piperacillin/tazo 3.375gm/50ml 50 ML IV SCH (08:00)
[2019-07-12] MEDS ORDERED: NORepinephrine 1 mg/ml inj IV ONE (08:00)
[2019-07-12] MEDS ORDERED: cefepime 1GM in D5W 50mL 50 ML IV ONE (08:30)
[2019-07-12] MEDS: insulin regular, human 100 UNIT in normal saline 100ml IV soln 99 ML IV SCH ×8 (09:19→21:53)
[2019-07-12] MEDS: docusate sodium 100mg/10ml UD cup PO SCH ×2 (09:21→20:00)
[2019-07-12] MEDS: hydrocortisone sod succ/PF 100mg/2ml inj. IV SCH ×2 (09:23→14:36)
[2019-07-12] MEDS: MVI, adult No.4 with vit. K 10 ML in dextrose 5% water 500ml 500 ML IV SCH ×2 (11:15)
[2019-07-12 11:37] LABS: ALBUMIN 1.9 G/DL (3.4-5.0); ANION GAP 22 (8-16); BLOOD UREA NITROGEN 23 MG/DL (7-18); BUN/CREATININE RATIO 7.6 (6.6-38.0); CALCIUM 6.1 MG/DL (8.5-10.1); CHLORIDE 101 MMOL/L (99-107); CREATININE 3.02 MG/DL (0.40-0.90); POTASSIUM 3.2 MMOL/L (3.5-5.1); SODIUM 139 MMOL/L (135-145); TOTAL CARBON DIOXIDE 15.6 MMOL/L (24-32); eGFR 17 ML/MIN
[2019-07-12 11:51] LABS: GLUCOSE 478 MG/DL (70-104)
--- NOTE | 2019-07-12 12:56 | NUR ---
Initial: patient is intubated and sedated d/t acute respiratory failure, with LAKEISHA, on pressors, MAP was >60, per MD note at diffuse colitis shown on CT scan, either shock liver or EtOH related fulminant hepatic failure per note. Put out 600 cc blood last night per NG tube. NPO for now. Recommend: 1. IF tube feeding, recommend vital AF at 65 ml/hr 2. IF tube feeding, prealbumin q thursday and , daily wts Addendum: 07/12/19 at [address] Amended: Links added.
[2019-07-12] MEDS ORDERED: INSU100V40 SQ (13:28)
--- NOTE | 2019-07-12 15:52 | NUR ---
Finger stick blood glucose is 512, spoke with dr Gonzalez. Orders received to everton saul
[2019-07-12] MEDS: metroNIDAZOLE-Flagyl 500mg/NS 100 ML IV SCH (16:20)
[2019-07-12 16:22] LABS: ALBUMIN 1.8 G/DL (3.4-5.0); ANION GAP 17 (8-16); BLOOD UREA NITROGEN 26 MG/DL (7-18); BUN/CREATININE RATIO 8.2 (6.6-38.0); CALCIUM 6.2 MG/DL (8.5-10.1); CHLORIDE 99 MMOL/L (99-107); CREATININE 3.18 MG/DL (0.40-0.90); SODIUM 137 MMOL/L (135-145); TOTAL CARBON DIOXIDE 20.9 MMOL/L (24-32); eGFR 16 ML/MIN
[2019-07-12 16:31] LABS: GLUCOSE 561 MG/DL (70-104)
[2019-07-12 16:32] LABS: POTASSIUM 2.7 MMOL/L (3.5-5.1)
[2019-07-12] MEDS ORDERED: potassium Cl 20 mEq SR tablet PO PRN ×2 (16:40)
[2019-07-12] MEDS: potassium Cl 20mEq/100mL bag 100 ML IV PRN ×2 (17:22→20:44)
--- NOTE | 2019-07-12 18:30 | NUR ---
Patient in room CICU 2011. I have received report from Bandar FITCH and had the opportunity to ask questions and assume patient care. Pt received orally intubated. ETT secure with comfit. Vent settings AC/VC FIO2 30% TV 400 rate 22 +5 PEEP. Oxygen saturation is 99%. Lungs with clear breath sounds upper anterior lobes, diminished in bases. OGT taped securely to ETT, connected to intermittent low wall suction. Pupils are equal & reactive to light. Sclera are icteric & edematous. Unable to follow commands, randomly moves arms & legs. Right IJ quad lumen central line is transduced. CVP reads 10. Rhythm is sinus tachycardia HR 118. Pulses palpable with brisk capillary refill. Left femoral arterial line is intact with good waveform. Vivar cath with brown urine along tubing. Pt is on menstrual cycle at this time. IVF: Bicarb drip at 150ml/hr, versed at 6mg/hr ,insulin drip at8.9 units /hr, Sandostatin at 25mcg/hr, K rider infusing. Left IJ central line intact. Left ACF with NS @ 20ml/hr.
[2019-07-12 18:46] LABS: BASOPHILS % (AUTO) 0.3 % (0-1); EOSINOPHILS % (AUTO) 0 % (0-6); HEMATOCRIT 30.3 % (35.0-45.0); HEMOGLOBIN 10.1 g/dl (12.0-16.0); LYMPHOCYTES # (AUTO) 0.2 X10'3 (1.1-4.8); LYMPHOCYTES % (AUTO) 3.9 % (21-51); MEAN CORPUSCULAR HGB CONC 33.4 g/dL (33.0-36.5); MEAN CORPUSCULAR VOLUME 86.7 FL (78-98); MEAN PLATELET VOLUME 8.3 FL (7.4-10.4); MONOCYTES # (AUTO) 0.2 X10'3 (0-0.9); MONOCYTES % (AUTO) 4.4 % (2-12); NEUTROPHILS # (AUTO) 4.5 X10'3 (1.8-7.7); NEUTROPHILS % (AUTO) 91.4 % (42-75); RED CELL DISTRIBUTION WIDTH 18.7 % (11.5-14.5); WHITE BLOOD COUNT 4.9 X10'3 (4.5-11.0)
[2019-07-12 19:08] LABS: ALBUMIN 1.9 G/DL (3.4-5.0); ANION GAP 15 (8-16); BLOOD UREA NITROGEN 28 MG/DL (7-18); BUN/CREATININE RATIO 8.9 (6.6-38.0); CHLORIDE 97 MMOL/L (99-107); CREATININE 3.16 MG/DL (0.40-0.90); SODIUM 134 MMOL/L (135-145); TOTAL CARBON DIOXIDE 22.1 MMOL/L (24-32); eGFR 16 ML/MIN
[2019-07-12 19:12] LABS: GLUCOSE 545 MG/DL (70-104); POTASSIUM 2.9 MMOL/L (3.5-5.1)
[2019-07-12 19:13] LABS: MAGNESIUM 0.8 MG/DL (1.5-2.4)
[2019-07-12 19:17] LABS: PLATELET COUNT 36 X10'3 (140-440)
[2019-07-12 19:21] LABS: ABG BASE EXCESS 3.6 mmol/L (-2.0-3.0); ABG HCO3 24.3 mmol/L (22.0-26.0); ABG PCO2 (T) 25.8 mmHg (35.0-45.0); ABG PH (T) 7.594 (7.350-7.450); ABG PO2 (T) 61.9 mmHg (83-108); FCOHb 0.1 % (0.5-1.5); FMetHb 0.3 % (0.3-1.12); FO2Hb 93.6 % (94-100); MINUTE VOLUME 11 L/min; PATIENT TEMPERATURE 37.7; PEEP 5 cm H2O; RESPIRATORY RATE 22 b/min; RESPIRATORY RATE (OBSERVED) 25 b/min; TIDAL VOLUME 400 mL; TOTAL HEMOGLOBIN 11.1 G/dl (12.0-16.0)
[2019-07-12] MEDS ORDERED: calcium chloride inj. 1,000 MG in normal saline 100ml IV soln 90 ML IV ONE (19:25)
[2019-07-12] MEDS ORDERED: magnesium 2GM in 50ml NS 50 ML IV PRN (19:25)
[2019-07-12 19:51] LABS: ALANINE AMINOTRANSFERASE 367 U/L (12-78); ALKALINE PHOSPHATASE 139 IU/L (46-116); BILIRUBIN,TOTAL 6.1 MG/DL (0.1-1.0)
[2019-07-12 19:52] LABS: ALBUMIN/GLOBULIN RATIO 0.8 (1.1-1.5); ASPARTATE AMINO TRANSFERASE 1596 U/L (10-37); TOTAL PROTEIN 4.2 G/DL (6.4-8.2)
[2019-07-12] MEDS: lactobacillus rhamnosus 10,000 MMU CELLS/CAPSULE PO SCH (20:37)
[2019-07-12] MEDS ORDERED: insulin glargine (Lantus) pen - multi-dose SQ SCH (21:00)
[2019-07-12] MEDS: vancomycin/NS 1 GM ADD-VANTAGE 250 ML IV SCH (22:43)
[2019-07-13] VITALS (24 sets, daily range): BP systolic 91–107; BP diastolic 51–68
[2019-07-13] MEDS: magnesium 4gm in 100ml NS 100 ML IV PRN (00:18)
[2019-07-13] MEDS: sodium bicarbonate inj. 75 ML in dextrose 5% water 500ml 500 ML IV SCH ×2 (00:25→05:47)
[2019-07-13] MEDS: metroNIDAZOLE-Flagyl 500mg/NS 100 ML IV SCH ×3 (00:28→17:31)
[2019-07-13 00:49] LABS: ALANINE AMINOTRANSFERASE 403 U/L (12-78); ALBUMIN 1.9 G/DL (3.4-5.0); ALKALINE PHOSPHATASE 153 IU/L (46-116); AMYLASE 53 U/L (25-115); ANION GAP 9 (8-16); BILIRUBIN,TOTAL 6.2 MG/DL (0.1-1.0); BLOOD UREA NITROGEN 31 MG/DL (7-18); BUN/CREATININE RATIO 9.3 (6.6-38.0); CALCIUM 6.9 MG/DL (8.5-10.1); CHLORIDE 99 MMOL/L (99-107); CREATININE 3.33 MG/DL (0.40-0.90); LIPASE 147 U/L (73-393); SODIUM 137 MMOL/L (135-145); TOTAL CARBON DIOXIDE 28.7 MMOL/L (24-32); eGFR 15 ML/MIN
[2019-07-13 00:57] LABS: ALBUMIN/GLOBULIN RATIO 0.9 (1.1-1.5); ASPARTATE AMINO TRANSFERASE 1522 U/L (10-37); TOTAL PROTEIN 4.1 G/DL (6.4-8.2)
[2019-07-13 01:00] LABS: GLUCOSE 462 MG/DL (70-104); POTASSIUM 2.7 MMOL/L (3.5-5.1)
[2019-07-13 01:01] LABS: MAGNESIUM 0.8 MG/DL (1.5-2.4); PHOSPHORUS 0.3 MG/DL (2.3-4.5)
[2019-07-13 01:06] LABS: CREATINE KINASE 34497 U/L (26-192)
[2019-07-13] MEDS: potassium Cl 20mEq/100mL bag 100 ML IV PRN ×8 (01:21→23:08)
[2019-07-13] MEDS ORDERED: sodium phosphate inj. 30 MMOL in dextrose 5%-water 250 ML IV PRN (01:30)
[2019-07-13] MEDS ORDERED: sodium phosphate inj. 15 MMOL in dextrose 5%-water 150 ML IV PRN ×2 (01:30→01:35)
[2019-07-13] MEDS: insulin regular, human 100 UNIT in normal saline 100ml IV soln 99 ML IV SCH ×4 (01:40→04:58)
[2019-07-13] MEDS: mineral oil/petrolatum ophthal oint EACHEYE SCH ×4 (02:42→20:08)
[2019-07-13] MEDS: ipratropium/albuterol 3ml nebule NEB SCH ×6 (03:01→23:11)
[2019-07-13] MEDS: pantoprazole 40MG/NS 100ML BAG 100 ML IV SCH ×2 (03:01→07:48)
[2019-07-13] MEDS: lactulose 20gm/30ml cup PO SCH ×4 (03:13→20:07)
--- NOTE | 2019-07-13 03:30 | NUR ---
Rectal tube placed. Pt has large amount of liquid brown stool. Marta care rendered, linen changed. Marta pad changed at this time. Pt has moderate amount of menstrual flow.
[2019-07-13 03:35] LABS: ABG BASE EXCESS 3.7 mmol/L (-2.0-3.0); ABG HCO3 25.4 mmol/L (22.0-26.0); ABG OXYGEN SATURATION 93.1 % (95-98); ABG PH (T) 7.561 (7.350-7.450); ABG PO2 (T) 58.1 mmHg (83-108); FCOHb 0.3 % (0.5-1.5); FMetHb 0.1 % (0.3-1.12); FO2Hb 92.7 % (94-100); MINUTE VOLUME 7 L/min; PATIENT TEMPERATURE 37.2; PEEP 5 cm H2O; RESPIRATORY RATE 16 b/min; RESPIRATORY RATE (OBSERVED) 16 b/min; TIDAL VOLUME 400 mL; TOTAL HEMOGLOBIN 10.9 G/dl (12.0-16.0)
[2019-07-13] MEDS: thiamine inj. 100 MG, folic acid inj. 2 MG in normal saline 100ml IV soln 100.0 ML IV SCH ×3 (03:45→09:08)
[2019-07-13] MEDS: NORepinephrine 8mg/ 250ml NS 250 ML IV PRN (03:45)
--- NOTE | 2019-07-13 03:45 | NUR ---
Levophed restarted for MAP<65.
[2019-07-13] MEDS: sodium phosphate inj. 30 MMOL in dextrose 5%-water 250 ML IV PRN (04:56)
[2019-07-13 05:30] LABS: BASOPHILS % (AUTO) 0.2 % (0-1); EOSINOPHILS % (AUTO) 0 % (0-6); HEMATOCRIT 30.4 % (35.0-45.0); HEMOGLOBIN 10.3 g/dl (12.0-16.0); LYMPHOCYTES # (AUTO) 0.7 X10'3 (1.1-4.8); LYMPHOCYTES % (AUTO) 8.5 % (21-51); MEAN CORPUSCULAR HEMOGLOBIN 29.4 PG (27.0-31.0); MEAN CORPUSCULAR HGB CONC 33.9 g/dL (33.0-36.5); MEAN CORPUSCULAR VOLUME 86.6 FL (78-98); MEAN PLATELET VOLUME 8.3 FL (7.4-10.4); MONOCYTES # (AUTO) 0.2 X10'3 (0-0.9); MONOCYTES % (AUTO) 2.8 % (2-12); NEUTROPHILS % (AUTO) 88.5 % (42-75); RED BLOOD COUNT 3.51 X10'6 (4.20-5.60); RED CELL DISTRIBUTION WIDTH 18.6 % (11.5-14.5); WHITE BLOOD COUNT 7.9 X10'3 (4.5-11.0)
[2019-07-13] MEDS ORDERED: calcium gluconate inj. 1 GM in normal saline 100ml IV soln 90 ML IV ONE (05:35)
[2019-07-13 05:44] LABS: PARTIAL THROMBOPLASTIN TIME 42 SECONDS (22-32)
[2019-07-13 05:56] LABS: ALANINE AMINOTRANSFERASE 338 U/L (12-78); ALBUMIN 1.8 G/DL (3.4-5.0); ALKALINE PHOSPHATASE 168 IU/L (46-116); ANION GAP 10 (8-16); BILIRUBIN,TOTAL 6.2 MG/DL (0.1-1.0); BLOOD UREA NITROGEN 32 MG/DL (7-18); BUN/CREATININE RATIO 9.5 (6.6-38.0); CALCIUM 6.5 MG/DL (8.5-10.1); CHLORIDE 99 MMOL/L (99-107); CREATININE 3.37 MG/DL (0.40-0.90); GLUCOSE 313 MG/DL (70-104); MAGNESIUM 2.4 MG/DL (1.5-2.4); POTASSIUM 3.6 MMOL/L (3.5-5.1); SODIUM 135 MMOL/L (135-145); TOTAL CARBON DIOXIDE 25.7 MMOL/L (24-32); eGFR 15 ML/MIN
[2019-07-13 06:01] LABS: ALBUMIN/GLOBULIN RATIO 0.8 (1.1-1.5); ASPARTATE AMINO TRANSFERASE 1272 U/L (10-37); TOTAL PROTEIN 4.1 G/DL (6.4-8.2)
--- NOTE | 2019-07-13 06:30 | NUR ---
Problems reprioritized. Patient report given, questions answered & plan of care reviewed with Selina FITCH.
[2019-07-13] MEDS: K and/or MAG REPLACEMENT MC SCH (08:00)
[2019-07-13] MEDS ORDERED: cefepime 1GM in D5W 50mL 50 ML IV SCH (08:00)
[2019-07-13] MEDS: docusate sodium 100mg/10ml UD cup PO SCH ×2 (08:00→20:07)
[2019-07-13 08:06] LABS: ANISOCYTOSIS 2+; PLATELET ESTIMATE DECREASED; TOTAL CELLS COUNTED 100
[2019-07-13 08:16] LABS: OXYGEN SATURATION (MIXED VEN) 75.1 % (60-80); PO2 MIXED VENOUS (TEMP COR) 37.1 mmHg (35-46)
[2019-07-13] MEDS: MVI, adult No.4 with vit. K 10 ML in dextrose 5% water 500ml 500 ML IV SCH ×2 (08:18)
[2019-07-13] MEDS: lactobacillus rhamnosus 10,000 MMU CELLS/CAPSULE PO SCH ×2 (08:51→20:07)
[2019-07-13 10:07] LABS: PLATELET COUNT 32 X10'3 (140-440)
--- NOTE | 2019-07-13 12:10 | NUR ---
Tube feeding consult. Per MD note weaning in progress, however as discussed at rounds will start tube feeding today if patient unable able to get off vent. Recommendations below. Recommend: 1. Continuous tube feeding using Vital AF at 75 ml/hr will provide total volume of 1800 ml, 1458 ml water, 2160 cals, and 135 g protein. 2. Prealbumin q thursday and , daily weights 3. Low sodium yesterday, hold water flushes 4. When extubated, advance diet as medically indicated to carb controlled 5. Daily weights Addendum: 07/13/19 at [address] Amended: Links added.
[2019-07-13] MEDS: dextrose 50%-water 50ml dispensing syringe IV PRN ×5 (14:21→20:04)
[2019-07-13] MEDS ORDERED: sodium chloride inj. 154 MEQ in Dextrose 10%-water IV solution 961.5 ML IV SCH (17:45)
[2019-07-13] MEDS ORDERED: sodium chloride inj. 154 MEQ in Dextrose 10%-water IV solution 1,000.0 ML IV SCH (17:45)
[2019-07-13] MEDS ORDERED: Dextrose 10%-water IV solution 1,000 ML IV SCH (17:55)
[2019-07-13 17:58] LABS: MAGNESIUM 1.7 MG/DL (1.5-2.4)
[2019-07-13 18:07] LABS: POTASSIUM 2.6 MMOL/L (3.5-5.1)
--- NOTE | 2019-07-13 18:30 | NUR ---
Patient in room CICU 2011. I have received report from CONSTANTINE Portillo and CONSTANTINE Sotelo and had the opportunity to ask questions and assume patient care.
--- NOTE | 2019-07-13 20:05 | NUR ---
November HEALTH IT SPECIALIST notified of blood sugar being 68 this hour and that day shift RN had said they were continuously getting low blood sugars for the last 5 hours despite treating patient with d50 per order. HEALTH IT SPECIALIST ordered to increase d10 to 50mls/hr from 40 mls/hr after giving 25mls of d50.
[2019-07-13] MEDS: pantoprazole 40 MG vial IV SCH (20:07)
--- NOTE | 2019-07-13 20:22 | NUR ---
previous blood sugar was 68. 25ml of d50 given, blood sugar now 125. Addendum: 07/13/19 at 2022 by Susi Alvarado RN Amended: Links added.
--- NOTE | 2019-07-13 21:45 | NUR ---
Took picture of blister on Patient's sacrum and placed in chart.
[2019-07-13] MEDS: vancomycin/NS 1 GM ADD-VANTAGE 250 ML IV SCH (21:58)
[2019-07-13] MEDS ORDERED: lactulose 20gm/30ml cup PO PRN (22:30)
[2019-07-13] MEDS: octreotide inj. 1,250 MCG in normal saline 250ml IV soln 243.75 ML IV SCH (23:50)
[2019-07-14] VITALS (29 sets, daily range): BP systolic 85–130; BP diastolic 41–86
[2019-07-14] MEDS: metroNIDAZOLE-Flagyl 500mg/NS 100 ML IV SCH ×3 (00:04→16:02)
[2019-07-14] MEDS: mineral oil/petrolatum ophthal oint EACHEYE SCH ×4 (02:00→20:00)
[2019-07-14] MEDS: lactulose 20gm/30ml cup PO SCH ×5 (02:00→22:36)
--- NOTE | 2019-07-14 02:13 | NUR ---
Jarod Pena WHEEL SHOP SUPERVISOR notified of blood sugars starting to trend up, 0100 was 131 and 0200 was 145. Orders received to turn d10 down to 40 from 50ml/hr and to check blood sugars q2hr.
[2019-07-14 03:44] LABS: BASOPHILS % (AUTO) 0.4 % (0-1); EOSINOPHILS % (AUTO) 0.5 % (0-6); HEMATOCRIT 24.3 % (35.0-45.0); HEMOGLOBIN 8.5 g/dl (12.0-16.0); LYMPHOCYTES # (AUTO) 1.5 X10'3 (1.1-4.8); LYMPHOCYTES % (AUTO) 14.9 % (21-51); MEAN CORPUSCULAR HEMOGLOBIN 29.8 PG (27.0-31.0); MEAN CORPUSCULAR HGB CONC 34.9 g/dL (33.0-36.5); MEAN CORPUSCULAR VOLUME 85.3 FL (78-98); MEAN PLATELET VOLUME 8.9 FL (7.4-10.4); MONOCYTES # (AUTO) 0.5 X10'3 (0-0.9); MONOCYTES % (AUTO) 4.8 % (2-12); NEUTROPHILS # (AUTO) 7.9 X10'3 (1.8-7.7); NEUTROPHILS % (AUTO) 79.4 % (42-75); RED BLOOD COUNT 2.85 X10'6 (4.20-5.60); RED CELL DISTRIBUTION WIDTH 19.8 % (11.5-14.5); WHITE BLOOD COUNT 9.9 X10'3 (4.5-11.0)
[2019-07-14 03:50] LABS: PARTIAL THROMBOPLASTIN TIME 35 SECONDS (22-32)
[2019-07-14 03:51] LABS: PLATELET COUNT 20 X10'3 (140-440)
[2019-07-14] MEDS: ipratropium/albuterol 3ml nebule NEB SCH ×6 (03:52→23:22)
[2019-07-14 04:09] LABS: ALANINE AMINOTRANSFERASE 283 U/L (12-78); ALBUMIN 1.6 G/DL (3.4-5.0); ALBUMIN/GLOBULIN RATIO 0.7 (1.1-1.5); ALKALINE PHOSPHATASE 211 IU/L (46-116); AMYLASE 34 U/L (25-115); ANION GAP 7 (8-16); ASPARTATE AMINO TRANSFERASE 792 U/L (10-37); BILIRUBIN,TOTAL 3.9 MG/DL (0.1-1.0); BLOOD UREA NITROGEN 33 MG/DL (7-18); BUN/CREATININE RATIO 8.6 (6.6-38.0); CALCIUM 6.5 MG/DL (8.5-10.1); CHLORIDE 101 MMOL/L (99-107); CREATININE 3.83 MG/DL (0.40-0.90); GLUCOSE 174 MG/DL (70-104); LIPASE < 50 U/L (73-393); MAGNESIUM 1.6 MG/DL (1.5-2.4); POTASSIUM 4.4 MMOL/L (3.5-5.1); PREALBUMIN 8.6 MG/DL (19-36); SODIUM 135 MMOL/L (135-145); TOTAL CARBON DIOXIDE 27.2 MMOL/L (24-32); TOTAL PROTEIN 3.8 G/DL (6.4-8.2); eGFR 13 ML/MIN
[2019-07-14 04:15] LABS: PHOSPHORUS 0.7 MG/DL (2.3-4.5)
[2019-07-14 04:27] LABS: CREATINE KINASE 13588 U/L (26-192)
--- NOTE | 2019-07-14 04:37 | NUR ---
Notified November ADELITA Pena about blood sugar of 172, orders received to decrease d10 to 20mls/hr
[2019-07-14] MEDS: sodium phosphate inj. 30 MMOL in dextrose 5%-water 250 ML IV PRN (05:06)
--- NOTE | 2019-07-14 05:55 | NUR ---
Notified Savita Pena NP of blood sugar at 195. Orders received to turn off d10 and not to give insulin coverage at this time.
--- NOTE | 2019-07-14 06:22 | NUR ---
Problems reprioritized. Patient report given, questions answered & plan of care reviewed with CONSTANTINE Dorsey.
[2019-07-14] MEDS: pantoprazole 40 MG vial IV SCH (07:55)
[2019-07-14] MEDS: multivitamins, therapeutics tablet PO SCH (07:55)
[2019-07-14] MEDS: lactobacillus rhamnosus 10,000 MMU CELLS/CAPSULE PO SCH ×2 (07:55→22:36)
[2019-07-14] MEDS: thiamine 100mg tablet PO SCH (07:55)
[2019-07-14] MEDS: cefepime 1GM/NS ADD-VANTAGE 100 ML IV SCH (07:56)
[2019-07-14] MEDS: magnesium 4gm in 100ml NS 100 ML IV PRN (07:57)
[2019-07-14] MEDS ORDERED: LIDOcaine 2% 5ml jelly ONE (08:00)
[2019-07-14] MEDS ORDERED: etomidate 2mg/ml inj. ONE (08:00)
[2019-07-14] MEDS ORDERED: VECuronium br 10mg inj. IV ONE (08:00)
[2019-07-14] MEDS: docusate sodium 100mg/10ml UD cup PO SCH ×2 (08:00→20:00)
[2019-07-14] MEDS ORDERED: LIDOcaine 2% (20 mg/ml) 5ml cardiac syringe ONE (08:00)
[2019-07-14 08:25] LABS: ABG BASE EXCESS 0.2 mmol/L (-2.0-3.0); ABG HCO3 23.8 mmol/L (22.0-26.0); ABG OXYGEN SATURATION 97.6 % (95-98); ABG PCO2 (T) 34.1 mmHg (35.0-45.0); ABG PH (T) 7.462 (7.350-7.450); ABG PO2 (T) 102.3 mmHg (83-108); FCOHb 0.2 % (0.5-1.5); FLOW 40 L/min; FMetHb 0.2 % (0.3-1.12); FO2Hb 97.2 % (94-100); MINUTE VOLUME 9 L/min; PATIENT TEMPERATURE 36.7; PEEP 5 cm H2O; RESPIRATORY RATE 14 b/min; RESPIRATORY RATE (OBSERVED) 20 b/min; TIDAL VOLUME 400 mL
[2019-07-14] MEDS: K and/or MAG REPLACEMENT MC SCH (08:57)
[2019-07-14] MEDS ORDERED: furosemide 40mg/4ml inj IV ONE (09:20)
[2019-07-14] MEDS ORDERED: dextrose ORAL solution 15 GM/59 ML bottle PO PRN (09:30)
[2019-07-14] MEDS ORDERED: dextrose 50%-water 50ml dispensing syringe IV PRN ×2 (09:30)
[2019-07-14] MEDS ORDERED: glucagon, human recombinant 1mg kit SUBCUT PRN (09:30)
[2019-07-14] MEDS: dexmedetomidin/NS 400mcg/100ml 100 ML IV SCH (11:10)
[2019-07-14] MEDS: insulin Lispro (HumaLOG) vial - multi-dose SQ SCH ×2 (11:48→17:23)
[2019-07-14] MEDS ORDERED: diphenhydrAMINE 50 mg/ml inj IV ONE ×2 (11:50→20:35)
[2019-07-14] MEDS ORDERED: methylPREDNISolone sod succ 125mg/2ml vial IV ONE (11:50)
[2019-07-14] MEDS: NORepinephrine 8mg/ 250ml NS 250 ML IV SCH (11:52)
[2019-07-14] MEDS ORDERED: diphenhydrAMINE 50 mg/ml inj ONE (11:53)
[2019-07-14] MEDS: sucralfate 1gm/10ml UD suspension PO SCH ×3 (12:00→22:36)
--- NOTE | 2019-07-14 12:07 | NUR ---
Plts started 10 min into transfusion BP dropped into the 70s and MAP was in the 30-40s. Dr Mariano on floor and orders given for levophed transfusion stopped. Pt responded well to levophed and recovered. Orders given to Benadryl and Solumedrol prior to restarting the transfusion. Pt tolerating the transfusion after meds given, no rashes or swelling noted, RR was stable and pt tolerating the vent. Will cont to closely monitor.
--- NOTE | 2019-07-14 15:37 | NUR ---
Pt extubated at 1525 tolerated well will cont to monitor.
[2019-07-14 16:12] LABS: MAGNESIUM 2.6 MG/DL (1.5-2.4); PHOSPHORUS 3.3 MG/DL (2.3-4.5)
[2019-07-14 17:25] LABS: HEMOGLOBIN 7.2 g/dl (12.0-16.0); MEAN CORPUSCULAR HEMOGLOBIN 29.1 PG (27.0-31.0); MEAN CORPUSCULAR HGB CONC 34.1 g/dL (33.0-36.5); MEAN CORPUSCULAR VOLUME 85.1 FL (78-98); MEAN PLATELET VOLUME 8.1 FL (7.4-10.4); PLATELET COUNT 59 X10'3 (140-440); RED BLOOD COUNT 2.48 X10'6 (4.20-5.60); RED CELL DISTRIBUTION WIDTH 19.8 % (11.5-14.5)
[2019-07-14 17:47] LABS: HEMATOCRIT 21.1 % (35.0-45.0)
--- NOTE | 2019-07-14 18:10 | NUR ---
Critical Hct 21.1 and HGB 7.2 down from 8.5 this AM and 10.[address] Mariano called with orders to transfuse 1 unit PRBC.
--- NOTE | 2019-07-14 18:34 | NUR ---
Problems reprioritized. Patient report given, questions answered & plan of care reviewed with Charu FITCH.
--- NOTE | 2019-07-14 18:40 | NUR ---
Patient in room CICU 2012. I have received report from Taj FITCH, and had the opportunity to ask questions and assume patient care.
--- NOTE | 2019-07-14 19:30 | NUR ---
PT resting in bed with no s/s of distress noted at this time. VSS. PT in on RA and tolerating well. PT is sleepy but wakes easily. Precedex is running @ 0.3mcg/hr, will titrate down. Levophed is running @ 2mcg/hr. Vivar in place, rectal tube in place and both draining to gravity. Bed is locked and low. Call light is within reach. Will continue to monitor.
--- NOTE | 2019-07-14 20:38 | NUR ---
ADELITA Laguerre attempted to go in and obtain consent for Blood Transfusion but was unable to obtain consent d/t Pt is being too sleepy/lethargic. Wakes but not clear enough to understand thoroughly. Using Emergent consent form from earlier today 07/14.
[2019-07-14] MEDS ORDERED: VANCOMYCIN LEVEL IV ONE (21:30)
[2019-07-14] MEDS: insulin glargine (Lantus) pen - multi-dose SQ SCH (22:35)
[2019-07-15] VITALS (29 sets, daily range): BP systolic 89–129; BP diastolic 56–85
--- NOTE | 2019-07-15 | NUR ---
One unit PRBC's administered with no reaction noted. PT was given 50mg Benadryl prior to start of transfusion d/t reports of possible reaction to platelets during previous shift. VSS and Levophed has been titrated down and off. Will continue to monitor.
[2019-07-15] MEDS: metroNIDAZOLE-Flagyl 500mg/NS 100 ML IV SCH ×3 (00:15→15:29)
[2019-07-15] MEDS: mineral oil/petrolatum ophthal oint EACHEYE SCH ×4 (02:00→19:11)
[2019-07-15] MEDS: ipratropium/albuterol 3ml nebule NEB SCH ×6 (02:53→23:00)
[2019-07-15] MEDS: lactulose 20gm/30ml cup PO SCH ×2 (03:21→08:20)
[2019-07-15] MEDS: dexmedetomidin/NS 400mcg/100ml 100 ML IV SCH ×2 (03:50→20:09)
[2019-07-15 03:51] LABS: BASOPHILS % (AUTO) 0.3 % (0-1); EOSINOPHILS % (AUTO) 0.1 % (0-6); HEMATOCRIT 25.2 % (35.0-45.0); HEMOGLOBIN 8.5 g/dl (12.0-16.0); LYMPHOCYTES # (AUTO) 0.4 X10'3 (1.1-4.8); LYMPHOCYTES % (AUTO) 6.3 % (21-51); MEAN CORPUSCULAR HEMOGLOBIN 28.9 PG (27.0-31.0); MEAN CORPUSCULAR HGB CONC 33.6 g/dL (33.0-36.5); MEAN CORPUSCULAR VOLUME 85.9 FL (78-98); MEAN PLATELET VOLUME 8.7 FL (7.4-10.4); MONOCYTES # (AUTO) 0.7 X10'3 (0-0.9); MONOCYTES % (AUTO) 10.1 % (2-12); NEUTROPHILS # (AUTO) 5.9 X10'3 (1.8-7.7); NEUTROPHILS % (AUTO) 83.2 % (42-75); PLATELET COUNT 54 X10'3 (140-440); RED BLOOD COUNT 2.93 X10'6 (4.20-5.60); WHITE BLOOD COUNT 7.1 X10'3 (4.5-11.0)
[2019-07-15 04:02] LABS: PARTIAL THROMBOPLASTIN TIME 26 SECONDS (22-32)
[2019-07-15 04:15] LABS: ALANINE AMINOTRANSFERASE 258 U/L (12-78); ALBUMIN 1.9 G/DL (3.4-5.0); ALKALINE PHOSPHATASE 338 IU/L (46-116); AMYLASE 18 U/L (25-115); ANION GAP 9 (8-16); ASPARTATE AMINO TRANSFERASE 543 U/L (10-37); BILIRUBIN,TOTAL 4.2 MG/DL (0.1-1.0); BLOOD UREA NITROGEN 43 MG/DL (7-18); BUN/CREATININE RATIO 8.9 (6.6-38.0); CALCIUM 6.8 MG/DL (8.5-10.1); CHLORIDE 100 MMOL/L (99-107); CREATININE 4.84 MG/DL (0.40-0.90); GLUCOSE 266 MG/DL (70-104); LIPASE < 50 U/L (73-393); MAGNESIUM 3.1 MG/DL (1.5-2.4); POTASSIUM 5.6 MMOL/L (3.5-5.1); SODIUM 134 MMOL/L (135-145); TOTAL CARBON DIOXIDE 25.5 MMOL/L (24-32); eGFR 10 ML/MIN
[2019-07-15 04:16] LABS: ALBUMIN/GLOBULIN RATIO 0.8 (1.1-1.5); PHOSPHORUS 3.9 MG/DL (2.3-4.5); TOTAL PROTEIN 4.4 G/DL (6.4-8.2)
--- NOTE | 2019-07-15 04:52 | NUR ---
UNABLE TO WEIGH PATIENT BED SCALE REPORTS WEIGHT NEGATIVE 61.3 KG
[2019-07-15 04:58] LABS: CREATINE KINASE 12112 U/L (26-192)
[2019-07-15] MEDS ORDERED: vancomycin/NS 1 GM ADD-VANTAGE 250 ML IV PRN (06:25)
--- NOTE | 2019-07-15 06:38 | NUR ---
Problems reprioritized. Patient report given, questions answered & plan of care reviewed with Taj FITCH.
[2019-07-15] MEDS ORDERED: albumin (human) 25% 100ml IV 100 ML IV PRN (07:50)
[2019-07-15] MEDS ORDERED: epoetin 20,000 units/ml inj IV ONE (07:50)
[2019-07-15] MEDS ORDERED: heparin 1,000 units/ml 10ml inj HE ONE ×2 (07:55)
[2019-07-15] MEDS: docusate sodium 100mg/10ml UD cup PO SCH ×2 (08:00→19:11)
[2019-07-15] MEDS: K and/or MAG REPLACEMENT MC SCH (08:00)
[2019-07-15] MEDS: cefepime 1GM/NS ADD-VANTAGE 100 ML IV SCH (08:15)
[2019-07-15] MEDS: lactobacillus rhamnosus 10,000 MMU CELLS/CAPSULE PO SCH ×2 (08:19→20:04)
[2019-07-15] MEDS: sucralfate 1gm/10ml UD suspension PO SCH ×4 (08:20→20:04)
[2019-07-15] MEDS: thiamine 100mg tablet PO SCH (08:20)
[2019-07-15] MEDS: multivitamins, therapeutics tablet PO SCH (08:20)
[2019-07-15] MEDS: insulin Lispro (HumaLOG) vial - multi-dose SQ SCH ×3 (09:10→20:09)
[2019-07-15] MEDS ORDERED: diphenhydrAMINE 50 mg/ml inj IV ONE (10:45)
[2019-07-15] MEDS ORDERED: haloperidol lactate 5mg/ml inj IM PRN (10:45)
[2019-07-15] MEDS ORDERED: LORazepam 2 mg/ml vial IV PRN (10:45)
[2019-07-15] MEDS ORDERED: haloperidol 5mg tablet PO PRN (10:45)
[2019-07-15] MEDS: chlordiazePOXIDE 5mg capsule PO PRN (11:09)
[2019-07-15] MEDS ORDERED: fentaNYL/PF 50MCG/1 ML 2ML syringe ONE (13:14)
[2019-07-15] MEDS ORDERED: heparin 1,000unit/ml 10ml vial 10 ML ONE (13:14)
[2019-07-15] MEDS ORDERED: midazolam 2 mg/2 ml injection ONE (13:14)
[2019-07-15] MEDS ORDERED: LIDOcaine 1%/PF 5ML 10 MG/ML VIAL ONE (13:14)
[2019-07-15] MEDS ORDERED: LIDOcaine 1% (10mg/ml) 2ml vial SQ ONE (13:20)
[2019-07-15] MEDS ORDERED: fentaNYL/PF 50MCG/1 ML 2ML syringe IV PRN (13:20)
[2019-07-15] MEDS ORDERED: heparin 1,000 units/ml 10ml inj ICATH ONE (13:20)
[2019-07-15] MEDS ORDERED: midazolam 2 mg/2 ml injection IV PRN (13:20)
--- NOTE | 2019-07-15 13:28 | NUR ---
Patient to Angio with 2nd pack of platelets transfusing; tolerating well; vital signs stable.
[2019-07-15] MEDS ORDERED: lactulose 20gm/30ml cup PO PRN (14:00)
--- NOTE | 2019-07-15 14:25 | NUR ---
Patient back from IR
[2019-07-15] MEDS: LORazepam 1 MG tablet PO PRN (15:29)
--- NOTE | 2019-07-15 16:00 | NUR ---
Patient having minor tremors in hands/arms; per patient, she gets this when "withdrawing from alcohol." PO Librium administered this AM. Ativan PO administered; will continue to monitor.
--- NOTE | 2019-07-15 16:39 | NUR ---
Reassessment, patient was intubated and sedated d/t acute respiratory failure and is now extubated. SUPPORT SERVICES TECH saw patient this morning, recommends eating slowly and taking small bites and sips, recommends mechanical soft diet with thin liquids. Pending PO Intake. Patient also on carb controlled diet d/t history of diabetes, A1c 7.7; given written DM education handout with verbal review. Admitted with LAKEISHA, diffuse colitis shown on CT scan, either shock liver or EtOH related fulminant hepatic failure per MD note. Pending TDC placement today for HD. Will continue to follow Recommend: 1. Continue carb controlled diet, mechanical soft with chopped foods, recommend renal additional d/w RN to d/w MD 2. Monitor appetite and need for ONS 3. wt per rx Addendum: 07/15/19 at [address] Amended: Links added.
[2019-07-15] MEDS: dextrose 50%-water 50ml dispensing syringe IV PRN (17:55)
--- NOTE | 2019-07-15 18:29 | NUR ---
Problems reprioritized. Patient report given, questions answered & plan of care reviewed with Mia FITCH.
--- NOTE | 2019-07-15 18:44 | NUR ---
Patient in room ICU 2040. I have received report from CONSTANTINE Vang and had the opportunity to ask questions and assume patient care.
[2019-07-15] MEDS: VANCOMYCIN LEVEL IV SCH (20:10)
[2019-07-15] MEDS: insulin glargine (Lantus) pen - multi-dose SQ SCH (21:00)
--- NOTE | 2019-07-15 21:58 | NUR ---
Spoke with charge nurse due to pts trending decrease in glucose values and poor appetite. Considering low value of last several accucheck it was decided to hold Lantus for the evening.
[2019-07-16] VITALS (27 sets, daily range): BP systolic 98–133; BP diastolic 55–84
[2019-07-16] MEDS: metroNIDAZOLE-Flagyl 500mg/NS 100 ML IV SCH ×3 (00:03→15:58)
[2019-07-16] MEDS: mineral oil/petrolatum ophthal oint EACHEYE SCH ×2 (02:00→07:16)
[2019-07-16] MEDS: dextrose ORAL solution 15 GM/59 ML bottle PO PRN (02:06)
[2019-07-16 02:24] LABS: BASOPHILS % (AUTO) 0.4 % (0-1); EOSINOPHILS % (AUTO) 0.6 % (0-6); HEMOGLOBIN 7.1 g/dl (12.0-16.0); LYMPHOCYTES # (AUTO) 1.3 X10'3 (1.1-4.8); LYMPHOCYTES % (AUTO) 19.8 % (21-51); MEAN CORPUSCULAR HEMOGLOBIN 29.4 PG (27.0-31.0); MEAN CORPUSCULAR HGB CONC 34.5 g/dL (33.0-36.5); MEAN CORPUSCULAR VOLUME 85.4 FL (78-98); MEAN PLATELET VOLUME 7.7 FL (7.4-10.4); MONOCYTES # (AUTO) 1.2 X10'3 (0-0.9); MONOCYTES % (AUTO) 19.3 % (2-12); NEUTROPHILS # (AUTO) 3.8 X10'3 (1.8-7.7); NEUTROPHILS % (AUTO) 59.9 % (42-75); PLATELET COUNT 108 X10'3 (140-440); RED BLOOD COUNT 2.41 X10'6 (4.20-5.60); RED CELL DISTRIBUTION WIDTH 19.2 % (11.5-14.5); WHITE BLOOD COUNT 6.3 X10'3 (4.5-11.0)
[2019-07-16 02:29] LABS: ALANINE AMINOTRANSFERASE 216 U/L (12-78); ALBUMIN 1.9 G/DL (3.4-5.0); ALBUMIN/GLOBULIN RATIO 0.8 (1.1-1.5); ALKALINE PHOSPHATASE 477 IU/L (46-116); AMYLASE 14 U/L (25-115); ANION GAP 6 (8-16); ASPARTATE AMINO TRANSFERASE 421 U/L (10-37); BILIRUBIN,TOTAL 2.3 MG/DL (0.1-1.0); BLOOD UREA NITROGEN 25 MG/DL (7-18); BUN/CREATININE RATIO 7.5 (6.6-38.0); CHLORIDE 105 MMOL/L (99-107); CREATININE 3.33 MG/DL (0.40-0.90); GLUCOSE 69 MG/DL (70-104); LIPASE < 50 U/L (73-393); MAGNESIUM 2.2 MG/DL (1.5-2.4); PHOSPHORUS 2.2 MG/DL (2.3-4.5); POTASSIUM 3.9 MMOL/L (3.5-5.1); SODIUM 141 MMOL/L (135-145); TOTAL CARBON DIOXIDE 29.8 MMOL/L (24-32); TOTAL PROTEIN 4.4 G/DL (6.4-8.2); VANCOMYCIN,RANDOM 23.6 UG/ML; eGFR 15 ML/MIN
[2019-07-16] MEDS: ipratropium/albuterol 3ml nebule NEB SCH ×6 (02:31→23:10)
[2019-07-16 02:35] LABS: HEMATOCRIT 20.6 % (35.0-45.0)
[2019-07-16 02:40] LABS: PARTIAL THROMBOPLASTIN TIME 24 SECONDS (22-32)
[2019-07-16 03:10] LABS: CREATINE KINASE 7411 U/L (26-192)
--- NOTE | 2019-07-16 06:39 | NUR ---
Problems reprioritized. Patient report given, questions answered & plan of care reviewed with CONSTANTINE Verde.
[2019-07-16] MEDS: acetaminophen 325mg tablet PO PRN ×2 (06:49→18:08)
--- NOTE | 2019-07-16 06:55 | NUR ---
Patient in room ICU 2040. I have received report from CONSTANTINE Bellamy and had the opportunity to ask questions and assume patient care.
[2019-07-16] MEDS: cefepime 1GM/NS ADD-VANTAGE 100 ML IV SCH (07:15)
[2019-07-16] MEDS: thiamine 100mg tablet PO SCH (07:16)
[2019-07-16] MEDS: lactobacillus rhamnosus 10,000 MMU CELLS/CAPSULE PO SCH ×2 (07:16→20:47)
[2019-07-16] MEDS: sucralfate 1gm/10ml UD suspension PO SCH (07:16)
[2019-07-16] MEDS: multivitamins, therapeutics tablet PO SCH (07:16)
[2019-07-16] MEDS: chlordiazePOXIDE 5mg capsule PO PRN ×2 (07:32→14:21)
[2019-07-16] MEDS: docusate sodium 100mg/10ml UD cup PO SCH ×2 (07:37→20:00)
[2019-07-16 07:47] LABS: ANISOCYTOSIS 2+; PLATELET ESTIMATE DECREASED; TOTAL CELLS COUNTED 100
[2019-07-16 07:48] LABS: MICROCYTOSIS 1+; POLYCHROMASIA FEW; STOMATOCYTES 2+; TOXIC GRANULATION 2+
[2019-07-16] MEDS: insulin Lispro (HumaLOG) vial - multi-dose SQ SCH ×3 (08:59→21:29)
[2019-07-16 09:09] LABS: HEMATOCRIT 25.7 % (35.0-45.0); HEMOGLOBIN 8.7 g/dl (12.0-16.0); MEAN CORPUSCULAR HEMOGLOBIN 29.1 PG (27.0-31.0); MEAN CORPUSCULAR VOLUME 85.6 FL (78-98); MEAN PLATELET VOLUME 7.9 FL (7.4-10.4); PLATELET COUNT 116 X10'3 (140-440); RED BLOOD COUNT 3.01 X10'6 (4.20-5.60); RED CELL DISTRIBUTION WIDTH 18.2 % (11.5-14.5); WHITE BLOOD COUNT 9.4 X10'3 (4.5-11.0)
--- NOTE | 2019-07-16 09:49 | NUR ---
Pt with low Judah of 12, per WOC notes skin intact. No further nutrition intervention warranted at this time. Will continue to follow. Addendum: 07/16/19 at [address] Amended: Links added.
[2019-07-16] MEDS ORDERED: normal saline 1000ml 250 ML IV PRN (10:57)
[2019-07-16] MEDS ORDERED: heparin 1,000unit/ml 10ml vial 10 ML IV ONE (10:57)
[2019-07-16] MEDS ORDERED: epoetin 20,000 units/ml inj IV ONE (11:00)
[2019-07-16] MEDS ORDERED: heparin 1,000 units/ml 10ml inj HE ONE ×2 (11:05)
[2019-07-16] MEDS: NORepinephrine 8mg/ 250ml NS 250 ML IV SCH (11:19)
[2019-07-16] MEDS ORDERED: pantoprazole 40 MG vial IV ONE (12:55)
--- NOTE | 2019-07-16 18:25 | NUR ---
Problems reprioritized. Patient report given, questions answered & plan of care reviewed with CONSTANTINE Bellamy.
[2019-07-16] MEDS: pantoprazole 40 MG vial IV SCH (20:47)
[2019-07-16] MEDS: insulin glargine (Lantus) pen - multi-dose SQ SCH (21:00)
--- NOTE | 2019-07-16 22:30 | NUR ---
Patient in room ICU 2040. I have received report from Mia FITCH and had the opportunity to ask questions and assume patient care.
--- NOTE | 2019-07-16 22:32 | NUR ---
Problems reprioritized. Patient report given, questions answered & plan of care reviewed with CONSTANTINE Paredes. Pt transferred via bed to [facility].
--- NOTE | 2019-07-16 23:12 | NUR ---
Pt. arrived via bed in no acute distress. Transferred to PCU bed via slide board w/o incident. Oriented to bed, room, and surroundings w/pt. understanding. Suction w/yankauer placed f/self care. Moist, productive cough noted. VSS on arrival. Pt. C/O feeling shaky as well as sleeplessness. Medication offered and admin, ice chips given. IV set up to R IJ as ordered. IJ dressing reinforced.
[2019-07-17] MEDS: metroNIDAZOLE-Flagyl 500mg/NS 100 ML IV SCH ×4 (00:20→23:51)
[2019-07-17] MEDS: LORazepam 1 MG tablet PO PRN ×2 (00:20→10:39)
[2019-07-17 02:00] VITALS: BP 117/77
[2019-07-17] MEDS: ipratropium/albuterol 3ml nebule NEB SCH ×6 (02:56→23:12)
[2019-07-17] MEDS: VANCOMYCIN LEVEL IV SCH (03:00)
[2019-07-17 03:36] LABS: ALANINE AMINOTRANSFERASE 203 U/L (12-78); ALBUMIN 1.8 G/DL (3.4-5.0); ALBUMIN/GLOBULIN RATIO 0.6 (1.1-1.5); ALKALINE PHOSPHATASE 505 IU/L (46-116); ANION GAP 9 (8-16); ASPARTATE AMINO TRANSFERASE 334 U/L (10-37); BILIRUBIN,TOTAL 1.5 MG/DL (0.1-1.0); BLOOD UREA NITROGEN 15 MG/DL (7-18); BUN/CREATININE RATIO 5.1 (6.6-38.0); CALCIUM 7.8 MG/DL (8.5-10.1); CHLORIDE 103 MMOL/L (99-107); CREATINE KINASE 4174 U/L (26-192); CREATININE 2.94 MG/DL (0.40-0.90); GLUCOSE 156 MG/DL (70-104); PHOSPHORUS 1.8 MG/DL (2.3-4.5); POTASSIUM 4.1 MMOL/L (3.5-5.1); SODIUM 138 MMOL/L (135-145); TOTAL CARBON DIOXIDE 26.4 MMOL/L (24-32); TOTAL PROTEIN 4.6 G/DL (6.4-8.2); VANCOMYCIN,RANDOM 15.6 UG/ML; eGFR 17 ML/MIN
[2019-07-17 04:05] LABS: BASOPHILS % (AUTO) 0.1 % (0-1); EOSINOPHILS # (AUTO) 0.1 X10'3 (0-0.9); EOSINOPHILS % (AUTO) 0.5 % (0-6); HEMATOCRIT 24.5 % (35.0-45.0); HEMOGLOBIN 8.1 g/dl (12.0-16.0); LYMPHOCYTES # (AUTO) 1.9 X10'3 (1.1-4.8); LYMPHOCYTES % (AUTO) 15.1 % (21-51); MEAN CORPUSCULAR HEMOGLOBIN 28.4 PG (27.0-31.0); MEAN CORPUSCULAR HGB CONC 32.8 g/dL (33.0-36.5); MEAN CORPUSCULAR VOLUME 86.5 FL (78-98); MEAN PLATELET VOLUME 8.5 FL (7.4-10.4); MONOCYTES # (AUTO) 3.3 X10'3 (0-0.9); NEUTROPHILS # (AUTO) 7.4 X10'3 (1.8-7.7); NEUTROPHILS % (AUTO) 58.3 % (42-75); PLATELET COUNT 142 X10'3 (140-440); RED BLOOD COUNT 2.83 X10'6 (4.20-5.60); RED CELL DISTRIBUTION WIDTH 18.4 % (11.5-14.5); WHITE BLOOD COUNT 12.7 X10'3 (4.5-11.0)
--- NOTE | 2019-07-17 06:54 | NUR ---
Problems reprioritized. Patient report given, questions answered & plan of care reviewed with Megan FITCH.
[2019-07-17 07:00] VITALS: BP 123/77
--- NOTE | 2019-07-17 07:05 | NUR ---
Patient in room PCU 3016. I have received report from CONSTANTINE Paredes and had the opportunity to ask questions and assume patient care.
--- NOTE | 2019-07-17 07:05 | NUR ---
Patient in room PCU 3016. I have received report from CONSTANTINE Paredes and had the opportunity to ask questions and assume patient care.
[2019-07-17] MEDS: docusate sodium 100mg/10ml UD cup PO SCH ×4 (07:33→21:02)
[2019-07-17] MEDS: lactobacillus rhamnosus 10,000 MMU CELLS/CAPSULE PO SCH ×2 (07:33→21:00)
[2019-07-17] MEDS: thiamine 100mg tablet PO SCH (07:33)
[2019-07-17] MEDS: pantoprazole 40 MG vial IV SCH ×2 (07:34→21:00)
[2019-07-17 08:13] LABS: ANISOCYTOSIS 2+; PLATELET ESTIMATE NORMAL; TOTAL CELLS COUNTED 100; TOXIC VACUOLATION 1+
[2019-07-17 08:14] LABS: LARGE PLATELETS FEW; TOXIC GRANULATION 2+
[2019-07-17] MEDS: multivitamins, therapeutics tablet PO SCH (08:53)
[2019-07-17] MEDS: insulin Lispro (HumaLOG) vial - multi-dose SQ SCH ×2 (09:03→13:37)
[2019-07-17] MEDS: acetaminophen 325mg tablet PO PRN (09:05)
[2019-07-17] MEDS: cefepime 1GM/NS ADD-VANTAGE 100 ML IV SCH (09:51)
[2019-07-17 11:00] VITALS: BP 118/79
[2019-07-17 15:00] VITALS: BP 102/67
[2019-07-17] MEDS: dextrose ORAL solution 15 GM/59 ML bottle PO PRN (17:11)
[2019-07-17 18:30] VITALS: BP 102/63
--- NOTE | 2019-07-17 18:52 | NUR ---
Problems reprioritized. Patient report given, questions answered & plan of care reviewed with CONSTANTINE Unger.
--- NOTE | 2019-07-17 18:52 | NUR ---
orientee documentation: I have reviewed and agree with all interventions, assessments performed and documented by CONSTANTINE Thompson .
[2019-07-17] MEDS: insulin glargine (Lantus) pen - multi-dose SQ SCH (21:00)
[2019-07-17 23:00] VITALS: BP 109/70
[2019-07-18] VITALS (7 sets, daily range): BP systolic 109–136; BP diastolic 70–86
--- NOTE | 2019-07-18 00:45 | NUR ---
Patient in room PCU 3016b. I have received report from CONSTANTINE Unger and had the opportunity to ask questions and assume patient care.
[2019-07-18] MEDS: ipratropium/albuterol 3ml nebule NEB SCH ×6 (03:00→23:26)
[2019-07-18] MEDS: VANCOMYCIN LEVEL IV SCH (03:00)
[2019-07-18 03:57] LABS: BASOPHILS % (AUTO) 0.1 % (0-1); EOSINOPHILS # (AUTO) 0.1 X10'3 (0-0.9); EOSINOPHILS % (AUTO) 0.5 % (0-6); HEMATOCRIT 24.7 % (35.0-45.0); HEMOGLOBIN 8.2 g/dl (12.0-16.0); LYMPHOCYTES # (AUTO) 1.7 X10'3 (1.1-4.8); LYMPHOCYTES % (AUTO) 9.3 % (21-51); MEAN CORPUSCULAR HEMOGLOBIN 28.8 PG (27.0-31.0); MEAN CORPUSCULAR HGB CONC 33.2 g/dL (33.0-36.5); MEAN CORPUSCULAR VOLUME 86.7 FL (78-98); MEAN PLATELET VOLUME 8.2 FL (7.4-10.4); MONOCYTES # (AUTO) 4.1 X10'3 (0-0.9); MONOCYTES % (AUTO) 22.5 % (2-12); NEUTROPHILS # (AUTO) 12.2 X10'3 (1.8-7.7); NEUTROPHILS % (AUTO) 67.6 % (42-75); PLATELET COUNT 206 X10'3 (140-440); RED BLOOD COUNT 2.85 X10'6 (4.20-5.60); RED CELL DISTRIBUTION WIDTH 18.6 % (11.5-14.5)
[2019-07-18 04:15] LABS: ALANINE AMINOTRANSFERASE 180 U/L (12-78); ALBUMIN 1.7 G/DL (3.4-5.0); ALBUMIN/GLOBULIN RATIO 0.6 (1.1-1.5); ALKALINE PHOSPHATASE 484 IU/L (46-116); ANION GAP 12 (8-16); ASPARTATE AMINO TRANSFERASE 237 U/L (10-37); BILIRUBIN,TOTAL 1.3 MG/DL (0.1-1.0); BLOOD UREA NITROGEN 20 MG/DL (7-18); BUN/CREATININE RATIO 4.9 (6.6-38.0); CALCIUM 7.6 MG/DL (8.5-10.1); CHLORIDE 100 MMOL/L (99-107); CREATINE KINASE 2605 U/L (26-192); CREATININE 4.07 MG/DL (0.40-0.90); GLUCOSE 177 MG/DL (70-104); MAGNESIUM 1.8 MG/DL (1.5-2.4); PHOSPHORUS 2.5 MG/DL (2.3-4.5); POTASSIUM 4.1 MMOL/L (3.5-5.1); PREALBUMIN 10.9 MG/DL (19-36); SODIUM 135 MMOL/L (135-145); TOTAL PROTEIN 4.5 G/DL (6.4-8.2); eGFR 12 ML/MIN
--- NOTE | 2019-07-18 06:02 | NUR ---
Problems reprioritized. Patient report given, questions answered & plan of care reviewed with CONSTANTINE Velazquez.
--- NOTE | 2019-07-18 06:20 | NUR ---
Patient in room PCU 3016. I have received report from CONSTANTINE VANN and had the opportunity to ask questions and assume patient care.
[2019-07-18] MEDS ORDERED: vancomycin/NS 1 GM ADD-VANTAGE 250 ML IV ONE (08:00)
[2019-07-18] MEDS: metroNIDAZOLE-Flagyl 500mg/NS 100 ML IV SCH ×2 (08:23→16:14)
[2019-07-18] MEDS: pantoprazole 40 MG vial IV SCH ×2 (08:24→19:27)
[2019-07-18] MEDS: cefepime 1GM/NS ADD-VANTAGE 100 ML IV SCH (08:24)
[2019-07-18] MEDS: docusate sodium 100mg/10ml UD cup PO SCH ×2 (08:25→19:27)
[2019-07-18] MEDS: multivitamins, therapeutics tablet PO SCH (08:25)
[2019-07-18] MEDS: lactobacillus rhamnosus 10,000 MMU CELLS/CAPSULE PO SCH ×2 (08:25→19:27)
[2019-07-18] MEDS: thiamine 100mg tablet PO SCH (08:25)
[2019-07-18] MEDS ORDERED: normal saline 1000ml 100 ML IV PRN (08:37)
[2019-07-18] MEDS ORDERED: normal saline 1000ml 250 ML IV PRN (08:37)
[2019-07-18] MEDS ORDERED: epoetin 20,000 units/ml inj IV ONE (08:40)
[2019-07-18] MEDS ORDERED: heparin 1,000 units/ml 10ml inj HE ONE ×2 (08:45)
[2019-07-18 09:17] LABS: ANISOCYTOSIS 2+; NUCLEATED RED BLOOD CELLS 4 /100WBC (0-0); PLATELET ESTIMATE NORMAL; TOTAL CELLS COUNTED 100
[2019-07-18 09:18] LABS: TOXIC GRANULATION 2+
[2019-07-18] MEDS: insulin Lispro (HumaLOG) vial - multi-dose SQ SCH ×2 (09:22→19:27)
[2019-07-18] MEDS: acetaminophen 325mg tablet PO PRN ×2 (11:12→20:09)
--- NOTE | 2019-07-18 14:11 | NUR ---
reassessment: Pt PO 25-50% meals; Glucerna TIDWM added for additional needs receiving HD for LAKEISHA. Pending MD approval prior to sending on trays. LBM 07/16. +6kg new bed scale wt likely not accurate w/ 1.5L positive fluid balance and on HD. Receiving thiamin/MVI for etoh hx. Will continue to monitor. Recommend: 1. Continue carb controlled diet, mechanical soft with chopped foods, recommend renal additional d/w RN to d/w MD 2. Glucerna TIDWM 3. wt w/ HD Addendum: 07/18/19 at [address] Amended: Links added.
[2019-07-18] MEDS: NUT.TX.GLUC.INTOLER,LAC-FR,SOY (GLUCERNA) 237 ML PO SCH (18:00)
--- NOTE | 2019-07-18 18:30 | NUR ---
Patient in room PCU 3016. I have received report from CONSTANTINE Velazquez and had the opportunity to ask questions and assume patient care. Patient awake for bedside report and stable at this time. Will continue to monitor closely.
--- NOTE | 2019-07-18 18:42 | NUR ---
Problems reprioritized. Patient report given, questions answered & plan of care reviewed with CONSTANTINE VANN.
--- NOTE | 2019-07-18 18:44 | NUR ---
NEW HIRE assortment planner: I have reviewed and agree with all interventions, assessments performed and documented by CONSTANTINE HESS.
[2019-07-18] MEDS: diphenhydrAMINE 25mg capsule PO PRN (20:09)
[2019-07-18] MEDS: insulin glargine (Lantus) pen - multi-dose SQ SCH (21:00)
[2019-07-19] VITALS (7 sets, daily range): BP systolic 123–144; BP diastolic 60–94
[2019-07-19] MEDS: metroNIDAZOLE-Flagyl 500mg/NS 100 ML IV SCH ×4 (02:13→23:53)
[2019-07-19] MEDS: VANCOMYCIN LEVEL IV SCH (02:20)
[2019-07-19] MEDS: ipratropium/albuterol 3ml nebule NEB SCH ×6 (03:58→22:53)
[2019-07-19 04:01] LABS: BASOPHILS # (AUTO) 0.1 X10'3 (0-0.2); BASOPHILS % (AUTO) 0.3 % (0-1); EOSINOPHILS # (AUTO) 0.1 X10'3 (0-0.9); EOSINOPHILS % (AUTO) 0.5 % (0-6); HEMATOCRIT 24.5 % (35.0-45.0); HEMOGLOBIN 7.9 g/dl (12.0-16.0); LYMPHOCYTES # (AUTO) 2.2 X10'3 (1.1-4.8); MEAN CORPUSCULAR HEMOGLOBIN 28.2 PG (27.0-31.0); MEAN CORPUSCULAR HGB CONC 32.4 g/dL (33.0-36.5); MEAN CORPUSCULAR VOLUME 86.9 FL (78-98); MEAN PLATELET VOLUME 8.3 FL (7.4-10.4); MONOCYTES # (AUTO) 3.9 X10'3 (0-0.9); MONOCYTES % (AUTO) 19.9 % (2-12); NEUTROPHILS # (AUTO) 13.6 X10'3 (1.8-7.7); NEUTROPHILS % (AUTO) 68.3 % (42-75); PLATELET COUNT 259 X10'3 (140-440); RED BLOOD COUNT 2.81 X10'6 (4.20-5.60); RED CELL DISTRIBUTION WIDTH 18.6 % (11.5-14.5); WHITE BLOOD COUNT 19.8 X10'3 (4.5-11.0)
[2019-07-19 04:22] LABS: ANION GAP 10 (8-16); BLOOD UREA NITROGEN 10 MG/DL (7-18); BUN/CREATININE RATIO 3.3 (6.6-38.0); CHLORIDE 103 MMOL/L (99-107); CREATININE 3.04 MG/DL (0.40-0.90); GLUCOSE 124 MG/DL (70-104); POTASSIUM 3.5 MMOL/L (3.5-5.1); SODIUM 137 MMOL/L (135-145); TOTAL CARBON DIOXIDE 23.7 MMOL/L (24-32)
[2019-07-19 04:23] LABS: ALANINE AMINOTRANSFERASE 149 U/L (12-78); ALBUMIN 1.6 G/DL (3.4-5.0); ALBUMIN/GLOBULIN RATIO 0.6 (1.1-1.5); ALKALINE PHOSPHATASE 475 IU/L (46-116); ASPARTATE AMINO TRANSFERASE 170 U/L (10-37); BILIRUBIN,TOTAL 1.3 MG/DL (0.1-1.0); CALCIUM 7.2 MG/DL (8.5-10.1); MAGNESIUM 1.5 MG/DL (1.5-2.4); PHOSPHORUS 1.9 MG/DL (2.3-4.5); TOTAL PROTEIN 4.4 G/DL (6.4-8.2); VANCOMYCIN,RANDOM 20.3 UG/ML; eGFR 17 ML/MIN
[2019-07-19 04:24] LABS: CREATINE KINASE 1614 U/L (26-192)
[2019-07-19 04:38] LABS: ANISOCYTOSIS 2+; PLATELET ESTIMATE NORMAL; TOTAL CELLS COUNTED 100; TOXIC GRANULATION 3+
[2019-07-19 04:39] LABS: POLYCHROMASIA FEW
--- NOTE | 2019-07-19 06:45 | NUR ---
Problems reprioritized. Patient report given, questions answered & plan of care reviewed with CONSTANTINE Viera and CONSTANTINE Whitley.
--- NOTE | 2019-07-19 07:19 | NUR ---
Patient in room PCU 3016. I have received report from Jeremy FITCH and had the opportunity to ask questions and assume patient care.
[2019-07-19 07:22] LABS: HBSAG SCREEN Negative (Negative)
[2019-07-19] MEDS: pantoprazole 40 MG vial IV SCH ×2 (07:29→20:42)
[2019-07-19] MEDS: lactobacillus rhamnosus 10,000 MMU CELLS/CAPSULE PO SCH ×2 (07:30→20:42)
[2019-07-19] MEDS: docusate sodium 100mg/10ml UD cup PO SCH ×2 (07:30→20:00)
[2019-07-19] MEDS: acetaminophen 325mg tablet PO PRN ×2 (07:31→16:11)
[2019-07-19] MEDS: multivitamins, therapeutics tablet PO SCH (07:31)
[2019-07-19] MEDS: thiamine 100mg tablet PO SCH (07:32)
[2019-07-19] MEDS: NUT.TX.GLUC.INTOLER,LAC-FR,SOY (GLUCERNA) 237 ML PO SCH ×3 (07:34→18:00)
[2019-07-19] MEDS: insulin Lispro (HumaLOG) vial - multi-dose SQ SCH ×3 (08:26→19:53)
[2019-07-19] MEDS: cefepime 1GM/NS ADD-VANTAGE 100 ML IV SCH (09:56)
--- NOTE | 2019-07-19 16:55 | NUR ---
PRESSURE ULCER EDUCATION: DEFINITION: A pressure ulcer is an area of skin that breaks down when you stay in one position too long. The constant pressure against the skin reduces the blood flow to that area and the affected tissue dies. CAUSES: "Being bedridden or in a wheelchair "Fragile skin "Having a chronic condition, such as diabetes or vascular disease "Inability to move certain parts of your body without assistance "Older age "Incontinence of urine or stool SYMPTOMS: "A reddened area that DOES NOT turn white when pressed on - this can be the beginning of a pressure ulcer "A blister, deep sore or a crater - these can be advanced pressure ulcers FIRST AID: "Relieve the pressure on this area "Keep the area clean and dry "Call your primary doctor if you see any of the above symptoms "DO NOT massage the area "DO NOT use a donut shaped or ring shaped pillow- these actually interfere with the blood flow and cause complications PREVENTION: "Check for pressure ulcers everyday "Change position at least every two hours to relieve pressure "Use items that help relieve pressure- pillows, sheepskin, foam padding, and powders. "Keep skin clean and dry "Eat healthy well balanced meals "Exercise daily IF YOU SEE ANY OF THESE SYMPTOMS WHILE IN THE HOSPITAL - TELL YOUR NURSE IMMEDIATELY. IF YOU SEE ANY OF THESE SYMPTOMS WHILE AT HOME OR HAVE ANY QUESTIONS OR CONCERNS ABOUT PRESSURE ULCERS - CALL YOUR PRIMARY DOCTOR IMMEDIATELY. Addendum: 07/19/19 at 1655 by Margarette Workman RN Amended: Links added.
--- NOTE | 2019-07-19 18:18 | NUR ---
Orientee documentation: I have reviewed and agree with all interventions, assessments performed and documented by CONSTANTINE Whitley. Orientee Medication Administration: For this medication-pass time frame, all medication were reviewed, dispensed, administered and documented per hospital policy by CONSTANTINE Whitley.
--- NOTE | 2019-07-19 18:30 | NUR ---
Patient report given, questions answered & plan of care reviewed with Pavel RN.
--- NOTE | 2019-07-19 18:47 | NUR ---
Patient in room PCU 3016. I have received report from Aylin FITCH and had the opportunity to ask questions and assume patient care.
[2019-07-19 19:19] LABS: BASOPHILS % (AUTO) 0.2 % (0-1); EOSINOPHILS # (AUTO) 0.1 X10'3 (0-0.9); EOSINOPHILS % (AUTO) 0.4 % (0-6); HEMATOCRIT 25.4 % (35.0-45.0); HEMOGLOBIN 8.5 g/dl (12.0-16.0); LYMPHOCYTES % (AUTO) 9.8 % (21-51); MEAN CORPUSCULAR HEMOGLOBIN 28.7 PG (27.0-31.0); MEAN CORPUSCULAR HGB CONC 33.4 g/dL (33.0-36.5); MEAN PLATELET VOLUME 7.6 FL (7.4-10.4); MONOCYTES # (AUTO) 3.8 X10'3 (0-0.9); MONOCYTES % (AUTO) 18.9 % (2-12); NEUTROPHILS # (AUTO) 14.2 X10'3 (1.8-7.7); NEUTROPHILS % (AUTO) 70.7 % (42-75); PLATELET COUNT 300 X10'3 (140-440); RED BLOOD COUNT 2.95 X10'6 (4.20-5.60); RED CELL DISTRIBUTION WIDTH 18.8 % (11.5-14.5)
[2019-07-19] MEDS: insulin glargine (Lantus) pen - multi-dose SQ SCH (21:39)
[2019-07-20] MEDS: diphenhydrAMINE 25mg capsule PO PRN (01:35)
[2019-07-20] MEDS: acetaminophen 325mg tablet PO PRN ×2 (01:35→16:45)
[2019-07-20 02:00] VITALS: BP 126/85
[2019-07-20] MEDS: ipratropium/albuterol 3ml nebule NEB SCH ×7 (03:43→23:58)
[2019-07-20] MEDS: dextrose 50%-water 50ml dispensing syringe IV PRN (04:49)
[2019-07-20 05:42] LABS: BASOPHILS % (AUTO) 0.2 % (0-1); EOSINOPHILS # (AUTO) 0.1 X10'3 (0-0.9); EOSINOPHILS % (AUTO) 0.5 % (0-6); HEMATOCRIT 24.8 % (35.0-45.0); HEMOGLOBIN 8.1 g/dl (12.0-16.0); LYMPHOCYTES # (AUTO) 1.6 X10'3 (1.1-4.8); MEAN CORPUSCULAR HEMOGLOBIN 28.1 PG (27.0-31.0); MEAN CORPUSCULAR HGB CONC 32.5 g/dL (33.0-36.5); MEAN CORPUSCULAR VOLUME 86.3 FL (78-98); MEAN PLATELET VOLUME 7.5 FL (7.4-10.4); MONOCYTES # (AUTO) 3.5 X10'3 (0-0.9); NEUTROPHILS # (AUTO) 15.2 X10'3 (1.8-7.7); NEUTROPHILS % (AUTO) 74.3 % (42-75); PLATELET COUNT 318 X10'3 (140-440); RED BLOOD COUNT 2.87 X10'6 (4.20-5.60); RED CELL DISTRIBUTION WIDTH 18.8 % (11.5-14.5); WHITE BLOOD COUNT 20.5 X10'3 (4.5-11.0)
[2019-07-20 06:00] VITALS: BP 128/85
[2019-07-20 06:01] LABS: ALANINE AMINOTRANSFERASE 147 U/L (12-78); ALBUMIN 1.6 G/DL (3.4-5.0); ALBUMIN/GLOBULIN RATIO 0.5 (1.1-1.5); ALKALINE PHOSPHATASE 452 IU/L (46-116); ANION GAP 7 (8-16); ASPARTATE AMINO TRANSFERASE 147 U/L (10-37); BILIRUBIN,TOTAL 1.2 MG/DL (0.1-1.0); BLOOD UREA NITROGEN 16 MG/DL (7-18); BUN/CREATININE RATIO 3.6 (6.6-38.0); CALCIUM 7.5 MG/DL (8.5-10.1); CHLORIDE 104 MMOL/L (99-107); CREATININE 4.43 MG/DL (0.40-0.90); GLUCOSE 123 MG/DL (70-104); MAGNESIUM 1.6 MG/DL (1.5-2.4); PHOSPHORUS 1.9 MG/DL (2.3-4.5); POTASSIUM 3.3 MMOL/L (3.5-5.1); SODIUM 137 MMOL/L (135-145); TOTAL CARBON DIOXIDE 26.5 MMOL/L (24-32); TOTAL PROTEIN 4.6 G/DL (6.4-8.2); eGFR 11 ML/MIN
[2019-07-20 06:28] LABS: ANISOCYTOSIS 2+; PLATELET ESTIMATE NORMAL
--- NOTE | 2019-07-20 06:35 | NUR ---
Patient in room PCU 3016. I have received report from CONSTANTINE Zhao and had the opportunity to ask questions and assume patient care. Patient currently resting in bed, bed locked and low, call light in reach, no acute distress, will continue to monitor.
--- NOTE | 2019-07-20 06:38 | NUR ---
Problems reprioritized. Patient report given, questions answered & plan of care reviewed with Gwen Chase RN.
[2019-07-20] MEDS: docusate sodium 100mg/10ml UD cup PO SCH ×2 (07:57→19:56)
[2019-07-20] MEDS: thiamine 100mg tablet PO SCH (07:58)
[2019-07-20] MEDS: metroNIDAZOLE-Flagyl 500mg/NS 100 ML IV SCH ×2 (07:58→16:30)
[2019-07-20] MEDS: multivitamins, therapeutics tablet PO SCH (07:58)
[2019-07-20] MEDS: lactobacillus rhamnosus 10,000 MMU CELLS/CAPSULE PO SCH ×2 (07:58→19:46)
[2019-07-20] MEDS: pantoprazole 40 MG vial IV SCH ×2 (07:58→19:46)
[2019-07-20] MEDS ORDERED: heparin 1,000unit/ml 10ml vial 10 ML IV ONE (08:00)
[2019-07-20] MEDS ORDERED: heparin 1,000 units/ml 10ml inj HE ONE ×2 (08:00)
[2019-07-20] MEDS ORDERED: normal saline 1000ml 250 ML IV PRN (08:00)
[2019-07-20] MEDS ORDERED: epoetin 20,000 units/ml inj IV ONE (08:00)
[2019-07-20] MEDS: NUT.TX.GLUC.INTOLER,LAC-FR,SOY (GLUCERNA) 237 ML PO SCH ×3 (08:09→18:00)
[2019-07-20] MEDS: cefepime 1GM/NS ADD-VANTAGE 100 ML IV SCH (09:29)
[2019-07-20 11:00] VITALS: BP 131/77
[2019-07-20 15:15] VITALS: BP 133/90
[2019-07-20 18:00] VITALS: BP 131/88
--- NOTE | 2019-07-20 18:28 | NUR ---
Patient in room PCU 3016. I have received report from Gwen Chase RN and had the opportunity to ask questions and assume patient care.
--- NOTE | 2019-07-20 18:30 | NUR ---
Problems reprioritized. Patient report given, questions answered & plan of care reviewed with Pavel, RN. patient stable at shift change
--- NOTE | 2019-07-20 19:34 | NUR ---
NOTIFIED called Vipin Laguerre about low K of 3.3 this am, pt creatinine is 4.43 therefore, no replacement at this time. order received for melatonin for sleep.
[2019-07-20] MEDS: insulin glargine (Lantus) pen - multi-dose SQ SCH (21:00)
--- NOTE | 2019-07-20 21:36 | NUR ---
Brian held pt was a lvl 1 yesterday, she had a critical low in the AM and this made her a zero. she has yet to re-qualify.
[2019-07-20] MEDS: Melatonin 3mg tablet PO SCH (21:40)
[2019-07-20 22:00] VITALS: BP 129/93
[2019-07-21] VITALS (7 sets, daily range): BP systolic 120–147; BP diastolic 83–96
[2019-07-21] MEDS: metroNIDAZOLE-Flagyl 500mg/NS 100 ML IV SCH ×3 (00:41→17:16)
[2019-07-21] MEDS: diphenhydrAMINE 25mg capsule PO PRN (00:48)
[2019-07-21] MEDS: acetaminophen 325mg tablet PO PRN ×2 (00:48→17:10)
[2019-07-21] MEDS: ipratropium/albuterol 3ml nebule NEB SCH ×6 (03:57→23:00)
[2019-07-21 06:13] LABS: BASOPHILS # (AUTO) 0.1 X10'3 (0-0.2); BASOPHILS % (AUTO) 0.3 % (0-1); EOSINOPHILS # (AUTO) 0.1 X10'3 (0-0.9); EOSINOPHILS % (AUTO) 0.4 % (0-6); HEMATOCRIT 23.9 % (35.0-45.0); HEMOGLOBIN 7.9 g/dl (12.0-16.0); LYMPHOCYTES # (AUTO) 1.8 X10'3 (1.1-4.8); LYMPHOCYTES % (AUTO) 9.5 % (21-51); MEAN CORPUSCULAR HEMOGLOBIN 28.3 PG (27.0-31.0); MEAN CORPUSCULAR HGB CONC 32.9 g/dL (33.0-36.5); MEAN PLATELET VOLUME 7.8 FL (7.4-10.4); MONOCYTES # (AUTO) 2.6 X10'3 (0-0.9); MONOCYTES % (AUTO) 13.6 % (2-12); NEUTROPHILS # (AUTO) 14.4 X10'3 (1.8-7.7); NEUTROPHILS % (AUTO) 76.2 % (42-75); PLATELET COUNT 322 X10'3 (140-440); RED BLOOD COUNT 2.78 X10'6 (4.20-5.60); RED CELL DISTRIBUTION WIDTH 19.1 % (11.5-14.5); WHITE BLOOD COUNT 18.9 X10'3 (4.5-11.0)
[2019-07-21 06:18] LABS: ALANINE AMINOTRANSFERASE 130 U/L (12-78); ALBUMIN 1.6 G/DL (3.4-5.0); ALBUMIN/GLOBULIN RATIO 0.5 (1.1-1.5); ALKALINE PHOSPHATASE 437 IU/L (46-116); ANION GAP 13 (8-16); ASPARTATE AMINO TRANSFERASE 122 U/L (10-37); BILIRUBIN,TOTAL 1.2 MG/DL (0.1-1.0); BLOOD UREA NITROGEN 9 MG/DL (7-18); BUN/CREATININE RATIO 2.8 (6.6-38.0); CALCIUM 7.4 MG/DL (8.5-10.1); CHLORIDE 101 MMOL/L (99-107); CREATININE 3.19 MG/DL (0.40-0.90); GLUCOSE 146 MG/DL (70-104); MAGNESIUM 1.6 MG/DL (1.5-2.4); PHOSPHORUS 2.2 MG/DL (2.3-4.5); POTASSIUM 3.9 MMOL/L (3.5-5.1); PREALBUMIN 10.7 MG/DL (19-36); SODIUM 136 MMOL/L (135-145); TOTAL PROTEIN 4.6 G/DL (6.4-8.2); eGFR 16 ML/MIN
--- NOTE | 2019-07-21 06:37 | NUR ---
Patient in room PCU 3016. I have received report from Pavel RN, and had the opportunity to ask questions and assume patient care.
--- NOTE | 2019-07-21 06:37 | NUR ---
Problems reprioritized. Patient report given, questions answered & plan of care reviewed with Ivone Martinez RN.
[2019-07-21 07:32] LABS: TOTAL CELLS COUNTED 100
[2019-07-21 07:33] LABS: ANISOCYTOSIS 2+; PLATELET ESTIMATE NORMAL
[2019-07-21 07:34] LABS: POLYCHROMASIA 2+; TARGET CELLS FEW
[2019-07-21 07:35] LABS: POIKILOCYTOSIS FEW
[2019-07-21] MEDS: docusate sodium 100mg/10ml UD cup PO SCH ×2 (08:00→19:39)
[2019-07-21] MEDS: thiamine 100mg tablet PO SCH (08:35)
[2019-07-21] MEDS: lactobacillus rhamnosus 10,000 MMU CELLS/CAPSULE PO SCH ×2 (08:35→19:20)
[2019-07-21] MEDS: multivitamins, therapeutics tablet PO SCH (08:35)
[2019-07-21] MEDS: pantoprazole 40 MG vial IV SCH ×2 (08:36→19:20)
[2019-07-21] MEDS: NUT.TX.GLUC.INTOLER,LAC-FR,SOY (GLUCERNA) 237 ML PO SCH ×3 (08:39→18:00)
[2019-07-21 08:40] LABS: OCCULT BLOOD STOOL NEGATIVE (Neg)
--- NOTE | 2019-07-21 09:18 | NUR ---
Page to PICC line nurse Assist with IV start. Chacho Merino [id number] L IJ is 12 days old. Hard Start and needs new site. Please assess if you are available Thank You Ivone
[2019-07-21] MEDS: cefepime 1GM/NS ADD-VANTAGE 100 ML IV SCH (09:34)
--- NOTE | 2019-07-21 15:20 | NUR ---
reassessment: Patient's appetite slightly more improved from admission. Was able to eat 100% of breakfast this morning, 50% for last night's dinner. PO 50% average PO intake of meals; she is also drinking 25-49% of Glucerna with meals. Pending discharge tomorrow to [facility]. Patient appears to have gained 27.5 kg since admission 9 days ago using bedscale weights, patient has mild 2+ edema to her feet. +6kg new bed scale wt likely not accurate w/ 1.5L positive fluid and fluid balance is only -1,100 ml, likely not able to contribute to an increase of 27.5 kg. Patient is receiving dialysis. Receiving thiamin/MVI for etoh hx. Will continue to monitor. Recommend: 1. Continue carb controlled diet, mechanical soft with chopped foods, recommend renal additional d/w RN to d/w MD 2. Glucerna TIDWM 3. weight per rx Addendum: 07/21/19 at [address] Amended: Links added.
--- NOTE | 2019-07-21 16:47 | NUR ---
Left IJ Central Line is DC'd per Karla TOVAR No culture is ordered, Sutures are completely removed and site is non tender.
--- NOTE | 2019-07-21 18:22 | NUR ---
Patient in room PCU 3016. I have received report from Ivone Martinez RN and had the opportunity to ask questions and assume patient care.
--- NOTE | 2019-07-21 18:25 | NUR ---
Patient in room PCU 3016. I have received report from Ivone Aguirre RN and had the opportunity to ask questions and assume patient care.
--- NOTE | 2019-07-21 18:36 | NUR ---
Problems reprioritized. Patient report given, questions answered & plan of care reviewed with Pavel RN .
[2019-07-21] MEDS: insulin Lispro (HumaLOG) vial - multi-dose SQ SCH (19:23)
[2019-07-21] MEDS: insulin glargine (Lantus) pen - multi-dose SQ SCH (21:00)
--- NOTE | 2019-07-21 21:00 | NUR ---
LANTUS HELD held 07/21/19 2100 lantus because pt had critical low of 26 on 07/20 at 0443 following last dose of lantus. pt had de-qualified for all insulin after this even and just re-met at a level one this afternoon 07/21/19. this was discussed with pt and pt decided that she would rather wait and not recieve lantus "just to be safe". this decision was discussed with charge nurse and agreed upon as a sound decision given the pt history.
[2019-07-21] MEDS: Melatonin 3mg tablet PO SCH (21:45)
[2019-07-21] MEDS ORDERED: Melatonin 3mg tablet PO PRN (21:55)
[2019-07-22] MEDS: diphenhydrAMINE 25mg capsule PO PRN (00:33)
[2019-07-22] MEDS: metroNIDAZOLE-Flagyl 500mg/NS 100 ML IV SCH ×3 (00:34→16:10)
[2019-07-22] MEDS: acetaminophen 325mg tablet PO PRN ×2 (00:34→15:10)
[2019-07-22 02:00] VITALS: BP 126/88
[2019-07-22] MEDS: ipratropium/albuterol 3ml nebule NEB SCH ×4 (03:00→16:22)
--- NOTE | 2019-07-22 05:38 | NUR ---
I have reviewed Radha Bee's charting and I agree.
[2019-07-22 05:47] LABS: BASOPHILS % (AUTO) 0.3 % (0-1); EOSINOPHILS # (AUTO) 0.1 X10'3 (0-0.9); EOSINOPHILS % (AUTO) 0.6 % (0-6); HEMATOCRIT 24.8 % (35.0-45.0); HEMOGLOBIN 8.3 g/dl (12.0-16.0); LYMPHOCYTES # (AUTO) 1.6 X10'3 (1.1-4.8); LYMPHOCYTES % (AUTO) 12.2 % (21-51); MEAN CORPUSCULAR HEMOGLOBIN 28.8 PG (27.0-31.0); MEAN CORPUSCULAR HGB CONC 33.4 g/dL (33.0-36.5); MEAN CORPUSCULAR VOLUME 86.3 FL (78-98); MEAN PLATELET VOLUME 7.3 FL (7.4-10.4); MONOCYTES # (AUTO) 1.9 X10'3 (0-0.9); MONOCYTES % (AUTO) 13.8 % (2-12); NEUTROPHILS # (AUTO) 9.9 X10'3 (1.8-7.7); NEUTROPHILS % (AUTO) 73.1 % (42-75); PLATELET COUNT 337 X10'3 (140-440); RED BLOOD COUNT 2.87 X10'6 (4.20-5.60); RED CELL DISTRIBUTION WIDTH 19.8 % (11.5-14.5); WHITE BLOOD COUNT 13.5 X10'3 (4.5-11.0)
[2019-07-22 06:00] VITALS: BP 136/85
[2019-07-22 06:05] LABS: ALANINE AMINOTRANSFERASE 125 U/L (12-78); ALBUMIN 1.7 G/DL (3.4-5.0); ALBUMIN/GLOBULIN RATIO 0.5 (1.1-1.5); ALKALINE PHOSPHATASE 431 IU/L (46-116); ANION GAP 11 (8-16); ASPARTATE AMINO TRANSFERASE 97 U/L (10-37); BILIRUBIN,TOTAL 1.2 MG/DL (0.1-1.0); BLOOD UREA NITROGEN 15 MG/DL (7-18); BUN/CREATININE RATIO 3.7 (6.6-38.0); CALCIUM 7.7 MG/DL (8.5-10.1); CHLORIDE 100 MMOL/L (99-107); CREATININE 4.04 MG/DL (0.40-0.90); GLUCOSE 131 MG/DL (70-104); MAGNESIUM 1.6 MG/DL (1.5-2.4); PHOSPHORUS 2.8 MG/DL (2.3-4.5); POTASSIUM 3.8 MMOL/L (3.5-5.1); SODIUM 133 MMOL/L (135-145); TOTAL CARBON DIOXIDE 22.1 MMOL/L (24-32); eGFR 12 ML/MIN
--- NOTE | 2019-07-22 06:15 | NUR ---
Patient in room PCU 3016. I have received report from CONSTANTINE Zhao and had the opportunity to ask questions and assume patient care. Patient is currently resting in bed, bed locked and low, call light in reach, no acute distress, will continue to monitor.
--- NOTE | 2019-07-22 06:28 | NUR ---
Problems reprioritized. Patient report given, questions answered & plan of care reviewed with Gwen Chase RN.
--- NOTE | 2019-07-22 06:28 | NUR ---
Problems reprioritized. Patient report given, questions answered & plan of care reviewed with Gwen Arellano RN.
[2019-07-22] MEDS: NUT.TX.GLUC.INTOLER,LAC-FR,SOY (GLUCERNA) 237 ML PO SCH ×2 (08:00→13:16)
[2019-07-22] MEDS: docusate sodium 100mg/10ml UD cup PO SCH (08:00)
[2019-07-22] MEDS: cefepime 1GM/NS ADD-VANTAGE 100 ML IV SCH (08:17)
[2019-07-22] MEDS: thiamine 100mg tablet PO SCH (08:24)
[2019-07-22] MEDS: lactobacillus rhamnosus 10,000 MMU CELLS/CAPSULE PO SCH (08:24)
[2019-07-22] MEDS: multivitamins, therapeutics tablet PO SCH (08:24)
[2019-07-22] MEDS: pantoprazole 40 MG vial IV SCH (08:26)
[2019-07-22] MEDS ORDERED: heparin 1,000unit/ml 10ml vial 10 ML IV ONE (08:59)
[2019-07-22] MEDS ORDERED: epoetin 20,000 units/ml inj IV ONE (09:00)
[2019-07-22] MEDS ORDERED: heparin 1,000 units/ml 10ml inj HE ONE ×2 (09:05)
[2019-07-22 09:23] LABS: TOTAL CELLS COUNTED 100
[2019-07-22 09:24] LABS: ANISOCYTOSIS 2+; MICROCYTOSIS 1+; PLATELET ESTIMATE NORMAL; POIKILOCYTOSIS FEW; POLYCHROMASIA 2+; TARGET CELLS FEW
[2019-07-22 11:00] VITALS: BP 141/91
[2019-07-22 15:00] VITALS: BP 152/100
--- NOTE | 2019-07-22 16:36 | NUR ---
Called Report to Rossy at [facility], awaiting patient corn picker
--- NOTE | 2019-07-22 17:19 | NUR ---
Received orders for patient discharge to [facility]. Patient belongings gathered, report called to facility, IV saline locked, VSS, awaiting pick up and delivery driver for transfer.
== END 2019-07-22 17:45 | DRG 720 ==
LOC: ER 19:09 → CICU 2S 07-12 00:05 → CMPBEDREQ 07-12 00:11 → ICU 2S 07-15 13:39 → PCU 3S 07-16 23:00
PROVIDERS: ADMIT Internal Medicine Critical Care Medicine
PROC: 5A1945Z Respiratory Ventilation, 24-96 Consecutive Hours (ICD-10-PCS; principal; 2019-07-11)
PROC: 0BH17EZ Insertion of Endotracheal Airway into Trachea, Via Natural or Artificial Opening (ICD-10-PCS; 2019-07-11)
PROC: 02HV33Z Insertion of Infusion Device into Superior Vena Cava, Percutaneous Approach (ICD-10-PCS; 2019-07-11)
PROC: B548ZZA Ultrasonography of Superior Vena Cava, Guidance (ICD-10-PCS; 2019-07-11)
PROC: 04HY32Z Insertion of Monitoring Device into Lower Artery, Percutaneous Approach (ICD-10-PCS; 2019-07-11)
PROC: 4A133B1 Monitoring of Arterial Pressure, Peripheral, Percutaneous Approach (ICD-10-PCS; 2019-07-11)
PROC: 4A133J1 Monitoring of Arterial Pulse, Peripheral, Percutaneous Approach (ICD-10-PCS; 2019-07-11)
PROC: 30233R1 Transfusion of Nonautologous Platelets into Peripheral Vein, Percutaneous Approach (ICD-10-PCS; 2019-07-14)
PROC: 30233N1 Transfusion of Nonautologous Red Blood Cells into Peripheral Vein, Percutaneous Approach (ICD-10-PCS; 2019-07-14)
PROC: 30233R1 Transfusion of Nonautologous Platelets into Peripheral Vein, Percutaneous Approach (ICD-10-PCS; 2019-07-15)
PROC: 5A1D70Z Performance of Urinary Filtration, Intermittent, Less than 6 Hours Per Day (ICD-10-PCS; 2019-07-15)
PROC: 0JH63XZ Insertion of Tunneled Vascular Access Device into Chest Subcutaneous Tissue and Fascia, Percutaneous Approach (ICD-10-PCS; 2019-07-15)
PROC: 02H633Z Insertion of Infusion Device into Right Atrium, Percutaneous Approach (ICD-10-PCS; 2019-07-15)
PROC: B244ZZZ Ultrasonography of Right Heart (ICD-10-PCS; 2019-07-15)
PROC: B2141ZZ Fluoroscopy of Right Heart using Low Osmolar Contrast (ICD-10-PCS; 2019-07-15)
PROC: 30233N1 Transfusion of Nonautologous Red Blood Cells into Peripheral Vein, Percutaneous Approach (ICD-10-PCS; 2019-07-16)
PROC: 5A1D70Z Performance of Urinary Filtration, Intermittent, Less than 6 Hours Per Day (ICD-10-PCS; 2019-07-16)
PROC: 5A1D70Z Performance of Urinary Filtration, Intermittent, Less than 6 Hours Per Day (ICD-10-PCS; 2019-07-18)
PROC: 5A1D70Z Performance of Urinary Filtration, Intermittent, Less than 6 Hours Per Day (ICD-10-PCS; 2019-07-20)
PROC: 5A1D70Z Performance of Urinary Filtration, Intermittent, Less than 6 Hours Per Day (ICD-10-PCS; 2019-07-22)
DX: A41.9 Sepsis, unspecified organism (principal); J96.01 Acute respiratory failure with hypoxia; N17.0 Acute kidney failure with tubular necrosis; E10.11 Type 1 diabetes mellitus with ketoacidosis with coma; J69.0 Pneumonitis due to inhalation of food and vomit; R65.21 Severe sepsis with septic shock; E87.4 Mixed disorder of acid-base balance; K55.9 Vascular disorder of intestine, unspecified; F10.229 Alcohol dependence with intoxication, unspecified; D69.6 Thrombocytopenia, unspecified; K85.90 Acute pancreatitis without necrosis or infection, unspecified; K76.0 Fatty (change of) liver, not elsewhere classified; F32.9 Major depressive disorder, single episode, unspecified; E87.1 Hypo-osmolality and hyponatremia; E87.5 Hyperkalemia; F12.90 Cannabis use, unspecified, uncomplicated; H92.01 Otalgia, right ear; E86.0 Dehydration; I10 Essential (primary) hypertension; M62.82 Rhabdomyolysis; Z79.899 Other long term (current) drug therapy; Z98.891 History of uterine scar from previous surgery
CPT/HCPCS: 36415; 36558; 36600; 70450; 71045; 71250; 74176; 76775; 76937; 77001; 80047; 80048; 80053; 80076; 80202; 80305; 80320; 80329; 81001; 81025; 82140; 82150; 82271; 82272; 82330; 82550; 82553; 82570; 82803; 82810; 82948; 83036; 83605; 83690; 83735; 84100; 84132; 84133; 84134; 84145; 84156; 84300; 84443; 84484; 85018; 85025; 85027; 85610; 85730; 86885; 86900; 86901; 86920; 87040; 87070; 87081; 87088; 87207; 87340; 92508; 92616; 93005; 93306; 94003; 94640; 94667; 94668; 94760; 96361; 96365; 97110; 97112; 97116; 97161; 97530; 99152; 99153; 99291; 99292; A9270; C1750; C1769; C1894; C9113; G0257; G0378; J0610; J0692; J0696; J0744; J1200; J1250; J1644; J1720; J1815; J1940; J2250; J2354; J2405; J2543; J2930; J3010; J3370; J3411; J3475; J3480; J3490; J7040; J7050; J7060; J7131; P9016; P9035; Q0163; Q4081

== ENCOUNTER 2019-07-23 22:17 | Inpatient (IN) | payer MEDICAID ==
[~2019-07-23] VITALS: Ht 165.1 cm; Wt 85.9 kg
[~2019-07-23 22:17] MED LIST changes: -GLIM2TAB3 PO; +INSU100V40 SQ; -METF-436 PO; -ciprofloxacin lact 400MG/200ML 200 ML IV ONE
[2019-07-23] MEDS ORDERED: furosemide 40mg/4ml inj IV ONE (22:50)
[2019-07-23 23:01] LABS: ABG BASE EXCESS -4.4 mmol/L (-2.0-3.0); ABG HCO3 20.1 mmol/L (22.0-26.0); ABG OXYGEN SATURATION 97.5 % (95-98); ABG PCO2 (T) 34.2 mmHg (35.0-45.0); ABG PH (T) 7.384 (7.350-7.450); ABG PO2 (T) 102.5 mmHg (83-108); ALLEN'S TEST Positive; FCOHb 0.4 % (0.5-1.5); FLOW 4 L/min; FMetHb 0.2 % (0.3-1.12); FO2Hb 96.9 % (94-100); PATIENT TEMPERATURE 36.7; TOTAL HEMOGLOBIN 10.4 G/dl (12.0-16.0)
[2019-07-23 23:10] LABS: ALANINE AMINOTRANSFERASE 107 U/L (12-78); ALBUMIN 1.9 G/DL (3.4-5.0); ALBUMIN/GLOBULIN RATIO 0.5 (1.1-1.5); ALKALINE PHOSPHATASE 420 IU/L (46-116); ANION GAP 14 (8-16); BILIRUBIN,TOTAL 1.5 MG/DL (0.1-1.0); BLOOD UREA NITROGEN 11 MG/DL (7-18); BUN/CREATININE RATIO 3.1 (6.6-38.0); CALCIUM 8.2 MG/DL (8.5-10.1); CHLORIDE 98 MMOL/L (99-107); CREATININE 3.58 MG/DL (0.40-0.90); GLUCOSE 254 MG/DL (70-104); SODIUM 132 MMOL/L (135-145); TOTAL CARBON DIOXIDE 20.2 MMOL/L (24-32); TOTAL PROTEIN 5.7 G/DL (6.4-8.2); eGFR 14 ML/MIN
[2019-07-23 23:30] LABS: ASPARTATE AMINO TRANSFERASE 73 U/L (10-37); POTASSIUM 4.2 MMOL/L (3.5-5.1)
[2019-07-23 23:31] LABS: D-DIMER 2.05 MG/L FEU (0-0.50)
[2019-07-23 23:44] LABS: BASOPHILS # (AUTO) 0.1 X10'3 (0-0.2); BASOPHILS % (AUTO) 0.6 % (0-1); EOSINOPHILS % (AUTO) 0.2 % (0-6); HEMATOCRIT 28.5 % (35.0-45.0); HEMOGLOBIN 9.4 g/dl (12.0-16.0); LYMPHOCYTES # (AUTO) 0.6 X10'3 (1.1-4.8); LYMPHOCYTES % (AUTO) 4.1 % (21-51); MEAN CORPUSCULAR HEMOGLOBIN 28.9 PG (27.0-31.0); MEAN CORPUSCULAR HGB CONC 33.1 g/dL (33.0-36.5); MEAN CORPUSCULAR VOLUME 87.1 FL (78-98); MEAN PLATELET VOLUME 7.3 FL (7.4-10.4); MONOCYTES # (AUTO) 1.2 X10'3 (0-0.9); MONOCYTES % (AUTO) 8.2 % (2-12); NEUTROPHILS # (AUTO) 12.7 X10'3 (1.8-7.7); NEUTROPHILS % (AUTO) 86.9 % (42-75); PLATELET COUNT 394 X10'3 (140-440); RED BLOOD COUNT 3.27 X10'6 (4.20-5.60); RED CELL DISTRIBUTION WIDTH 20.7 % (11.5-14.5); WHITE BLOOD COUNT 14.6 X10'3 (4.5-11.0)
[2019-07-24] VITALS (8 sets, daily range): BP systolic 102–125; BP diastolic 64–94
[2019-07-24] MEDS ORDERED: FLUO10CA28 PO (00:26)
[2019-07-24] MEDS ORDERED: THIA100T66 PO (00:26)
[2019-07-24] MEDS ORDERED: dextrose ORAL solution 15 GM/59 ML bottle PO PRN ×2 (00:30)
[2019-07-24] MEDS ORDERED: acetaminophen 650mg rectal suppository RC PRN (00:30)
[2019-07-24] MEDS ORDERED: acetaminophen 325mg tablet PO PRN ×2 (00:30)
[2019-07-24] MEDS ORDERED: glucagon, human recombinant 1mg kit SUBCUT PRN (00:30)
[2019-07-24] MEDS ORDERED: dextrose 50%-water 50ml dispensing syringe IV PRN ×2 (00:30)
[2019-07-24] MEDS ORDERED: MESSAGE TO PHARMACY PO ONE (00:30)
[2019-07-24 00:31] LABS: ANISOCYTOSIS 3+; MICROCYTOSIS 1+; PLATELET ESTIMATE NORMAL; POLYCHROMASIA 1+
[2019-07-24] MEDS ORDERED: PANT-47 IV (00:35)
[2019-07-24] MEDS ORDERED: DOCU-148 (00:35)
[2019-07-24] MEDS ORDERED: LACT10SO PO (00:35)
[2019-07-24] MEDS ORDERED: METR500T IV (00:35)
[2019-07-24] MEDS ORDERED: CEFE1FRO IV (00:35)
[2019-07-24] MEDS ORDERED: ALB0.5UD IH (00:35)
[2019-07-24] MEDS ORDERED: MULT1TAB74 PO (00:35)
[2019-07-24] MEDS ORDERED: CHLO25CA10 PO (00:35)
[2019-07-24] MEDS ORDERED: ipratropium/albuterol 3ml nebule NEB PRN (00:55)
--- NOTE | 2019-07-24 02:00 | NUR ---
Received report from CONSTANTINE Barnett in Er. Pt presented on ER c/o Acute Respiratory Distress that started two hours prior to arrival to ED. Placed on BIPAP upon arrival . CR-X showed left pleural effusion and vascular congestion. Pt received Lasix 40mg via IV in ED She underwent three dialysis treatment at [facility]. The third treatment was 07/22/19. Her VS, upon arrival a PCU are as follow: BP 125/94; HR: 108; SPO2 100% on 2L of oxygen via NC, Temperature: 98.7. Pt was alert and oriented X4. She is in 1500ml fluid restriction. Per RT placed patient on BIPAP if oxygen level decrease. Used BIPAP as needed. Will continue to monitor
[2019-07-24] MEDS: lactulose 20gm/30ml cup PO SCH ×2 (03:08→08:31)
[2019-07-24] MEDS: ondansetron/PF 4mg/2ml inj IV PRN (03:35)
[2019-07-24] MEDS: chlordiazePOXIDE 5mg capsule PO PRN (03:50)
--- NOTE | 2019-07-24 05:39 | NUR ---
Pt weight is 78.4, bladder scan 228 and BS 195
--- NOTE | 2019-07-24 06:15 | NUR ---
Patient in room PCU 3018. I have received report from Víctor FITCH and had the opportunity to ask questions and assume patient care.
--- NOTE | 2019-07-24 06:30 | NUR ---
Problems reprioritized. Patient report given, questions answered & plan of care reviewed with CONSTANTINE Viera. Pt is sleeping with BIPAP on. Patient stable at shift change.
[2019-07-24] MEDS ORDERED: pantoprazole 40 MG vial IV SCH (08:00)
[2019-07-24] MEDS: docusate sod 100mg capsule PO SCH ×2 (08:00→20:00)
[2019-07-24] MEDS: cefepime 1GM in D5W 50mL 50 ML IV SCH (08:27)
[2019-07-24] MEDS: pantoprazole 40 MG vial IV SCH ×2 (08:29→20:13)
[2019-07-24] MEDS: furosemide 40mg/4ml inj IV SCH ×2 (08:30→20:13)
[2019-07-24] MEDS: multivitamins, therapeutics tablet PO SCH (08:30)
[2019-07-24] MEDS: FLUoxetine 10mg capsule PO SCH (08:31)
[2019-07-24] MEDS: thiamine 100mg tablet PO SCH (08:31)
[2019-07-24] MEDS: heparin, porcine 5000 units/ml vial SQ SCH ×2 (08:32→20:16)
[2019-07-24] MEDS: insulin Lispro (HumaLOG) vial - multi-dose SQ SCH ×2 (09:02→14:11)
[2019-07-24 10:59] LABS: ALANINE AMINOTRANSFERASE 98 U/L (12-78); ALBUMIN 1.8 G/DL (3.4-5.0); ALBUMIN/GLOBULIN RATIO 0.5 (1.1-1.5); ALKALINE PHOSPHATASE 396 IU/L (46-116); ANION GAP 12 (8-16); ASPARTATE AMINO TRANSFERASE 56 U/L (10-37); BILIRUBIN,TOTAL 1.1 MG/DL (0.1-1.0); BLOOD UREA NITROGEN 13 MG/DL (7-18); BUN/CREATININE RATIO 3.2 (6.6-38.0); CHLORIDE 101 MMOL/L (99-107); CREATININE 4.08 MG/DL (0.40-0.90); GLUCOSE 208 MG/DL (70-104); MAGNESIUM 1.6 MG/DL (1.5-2.4); PHOSPHORUS 3.7 MG/DL (2.3-4.5); SODIUM 135 MMOL/L (135-145); TOTAL CARBON DIOXIDE 21.7 MMOL/L (24-32); TOTAL PROTEIN 5.7 G/DL (6.4-8.2); eGFR 12 ML/MIN
[2019-07-24] MEDS: metroNIDAZOLE-Flagyl 500mg/NS 100 ML IV SCH ×2 (11:24→15:24)
[2019-07-24 12:27] LABS: BASOPHILS # (AUTO) 0.1 X10'3 (0-0.2); BASOPHILS % (AUTO) 0.5 % (0-1); EOSINOPHILS % (AUTO) 0.2 % (0-6); HEMATOCRIT 27.9 % (35.0-45.0); HEMOGLOBIN 9.3 g/dl (12.0-16.0); LYMPHOCYTES # (AUTO) 1.6 X10'3 (1.1-4.8); LYMPHOCYTES % (AUTO) 13.8 % (21-51); MEAN CORPUSCULAR HGB CONC 33.5 g/dL (33.0-36.5); MEAN CORPUSCULAR VOLUME 86.8 FL (78-98); MEAN PLATELET VOLUME 7.6 FL (7.4-10.4); MONOCYTES # (AUTO) 1.6 X10'3 (0-0.9); MONOCYTES % (AUTO) 14.3 % (2-12); NEUTROPHILS % (AUTO) 71.2 % (42-75); PLATELET COUNT 400 X10'3 (140-440); RED BLOOD COUNT 3.21 X10'6 (4.20-5.60); RED CELL DISTRIBUTION WIDTH 21.2 % (11.5-14.5); WHITE BLOOD COUNT 11.3 X10'3 (4.5-11.0)
--- NOTE | 2019-07-24 18:14 | NUR ---
Problems reprioritized. Patient report given, questions answered & plan of care reviewed with Angela FITCH.
--- NOTE | 2019-07-24 18:21 | NUR ---
Orientee documentation: I have reviewed and agree with all interventions, assessments performed and documented by Angi FITCH. Orientee Medication Administration: For this medication-pass time frame, all medication were reviewed, dispensed, administered and documented per hospital policy by Angi FITCH.
--- NOTE | 2019-07-24 19:00 | NUR ---
Patient in room PCU 3018. I have received report from Aylin RN, Joey RN and had the opportunity to ask questions and assume patient care.
[2019-07-24] MEDS: lactobacillus rhamnosus 10,000 MMU CELLS/CAPSULE PO SCH (20:16)
[2019-07-24] MEDS: insulin glargine (Lantus) pen - multi-dose SQ SCH (21:00)
[2019-07-25] MEDS: metroNIDAZOLE-Flagyl 500mg/NS 100 ML IV SCH ×2 (00:17→07:47)
[2019-07-25 03:00] VITALS: BP 108/64
[2019-07-25 06:00] VITALS: BP 111/75
--- NOTE | 2019-07-25 06:13 | NUR ---
Patient in room PCU 3018. I have received report from Angela FITCH and had the opportunity to ask questions and assume patient care.
[2019-07-25 06:15] LABS: BASOPHILS # (AUTO) 0.1 X10'3 (0-0.2); BASOPHILS % (AUTO) 0.8 % (0-1); EOSINOPHILS % (AUTO) 0.3 % (0-6); HEMATOCRIT 27.1 % (35.0-45.0); LYMPHOCYTES # (AUTO) 2.2 X10'3 (1.1-4.8); LYMPHOCYTES % (AUTO) 25.6 % (21-51); MEAN CORPUSCULAR HEMOGLOBIN 29.2 PG (27.0-31.0); MEAN CORPUSCULAR HGB CONC 33.2 g/dL (33.0-36.5); MEAN CORPUSCULAR VOLUME 87.9 FL (78-98); MEAN PLATELET VOLUME 7.6 FL (7.4-10.4); MONOCYTES # (AUTO) 1.2 X10'3 (0-0.9); MONOCYTES % (AUTO) 13.9 % (2-12); NEUTROPHILS % (AUTO) 59.4 % (42-75); PLATELET COUNT 408 X10'3 (140-440); RED BLOOD COUNT 3.08 X10'6 (4.20-5.60); RED CELL DISTRIBUTION WIDTH 21.7 % (11.5-14.5); WHITE BLOOD COUNT 8.5 X10'3 (4.5-11.0)
[2019-07-25 06:39] LABS: ALANINE AMINOTRANSFERASE 87 U/L (12-78); ALBUMIN 1.7 G/DL (3.4-5.0); ALBUMIN/GLOBULIN RATIO 0.5 (1.1-1.5); ALKALINE PHOSPHATASE 338 IU/L (46-116); ANION GAP 13 (8-16); ASPARTATE AMINO TRANSFERASE 60 U/L (10-37); BILIRUBIN,TOTAL 1.2 MG/DL (0.1-1.0); BLOOD UREA NITROGEN 16 MG/DL (7-18); BUN/CREATININE RATIO 3.7 (6.6-38.0); CALCIUM 8.2 MG/DL (8.5-10.1); CHLORIDE 101 MMOL/L (99-107); CREATININE 4.33 MG/DL (0.40-0.90); GLUCOSE 130 MG/DL (70-104); MAGNESIUM 1.6 MG/DL (1.5-2.4); PHOSPHORUS 3.7 MG/DL (2.3-4.5); POTASSIUM 3.7 MMOL/L (3.5-5.1); SODIUM 136 MMOL/L (135-145); TOTAL CARBON DIOXIDE 21.6 MMOL/L (24-32); TOTAL PROTEIN 5.4 G/DL (6.4-8.2); eGFR 11 ML/MIN
[2019-07-25 07:12] LABS: PLATELET ESTIMATE NORMAL
[2019-07-25 07:13] LABS: ANISOCYTOSIS 3+; LARGE PLATELETS FEW
[2019-07-25 07:14] LABS: HYPOCHROMASIA 1+; POLYCHROMASIA 1+
[2019-07-25] MEDS: pantoprazole 40 MG vial IV SCH (07:45)
[2019-07-25] MEDS: furosemide 40mg/4ml inj IV SCH ×2 (07:45→20:21)
[2019-07-25] MEDS: multivitamins, therapeutics tablet PO SCH (07:46)
[2019-07-25] MEDS: lactobacillus rhamnosus 10,000 MMU CELLS/CAPSULE PO SCH ×2 (07:46→20:20)
[2019-07-25] MEDS: thiamine 100mg tablet PO SCH (07:46)
[2019-07-25] MEDS: FLUoxetine 10mg capsule PO SCH (07:46)
[2019-07-25] MEDS: heparin, porcine 5000 units/ml vial SQ SCH ×2 (07:47→20:21)
[2019-07-25] MEDS: docusate sod 100mg capsule PO SCH ×2 (07:48→20:00)
[2019-07-25] MEDS: insulin Lispro (HumaLOG) vial - multi-dose SQ SCH (09:03)
[2019-07-25] MEDS: cefepime 1GM in D5W 50mL 50 ML IV SCH (09:08)
[2019-07-25 11:00] VITALS: BP 106/72
[2019-07-25 15:00] VITALS: BP 125/81
[2019-07-25] MEDS: metroNIDAZOLE 500mg tablet PO SCH ×2 (15:43→23:31)
--- NOTE | 2019-07-25 18:05 | NUR ---
Patient in room PCU 3018. I have received report from CONSTANTINE Whitley and had the opportunity to ask questions and assume patient care.
--- NOTE | 2019-07-25 18:16 | NUR ---
Problems reprioritized. Patient report given, questions answered & plan of care reviewed with Angela RN & Dori RN. Patient stable at time of report given.
[2019-07-25 18:47] VITALS: BP 127/73
--- NOTE | 2019-07-25 18:59 | NUR ---
Patient in room PCU 3018. I have received report from Aylin RN, Joey Rn and had the opportunity to ask questions and assume patient care.
--- NOTE | 2019-07-25 18:59 | NUR ---
This patient had a BS in ER of upwards of 200 in which was not tx. Treatment for nutritional correctional will begin when patient meets two BS >160 or one >200 here on the telemetry floor.
[2019-07-25] MEDS: pantoprazole 40mg Tablet.DR PO SCH (20:20)
[2019-07-25] MEDS ORDERED: cefepime 1GM/NS ADD-VANTAGE 100 ML IV SCH (20:36)
[2019-07-25] MEDS: insulin glargine (Lantus) pen - multi-dose SQ SCH (21:00)
[2019-07-25] MEDS ORDERED: emollient combination-Eucerin 250 ML LOTION TP PRN (21:35)
[2019-07-25 22:00] VITALS: BP 115/79
[2019-07-25] MEDS: chlordiazePOXIDE 5mg capsule PO PRN (23:31)
[2019-07-26] MEDS ORDERED: lactulose 20gm/30ml cup PO PRN (00:30)
[2019-07-26 02:00] VITALS: BP 120/87
--- NOTE | 2019-07-26 05:02 | NUR ---
I have reviewed and agree with all medications administered and interventions performed by Orienting Nurse CONSTANTINE Meadows.
[2019-07-26 05:46] LABS: BASOPHILS # (AUTO) 0.1 X10'3 (0-0.2); MEAN PLATELET VOLUME 7.8 FL (7.4-10.4); WHITE BLOOD COUNT 8.5 X10'3 (4.5-11.0)
[2019-07-26 05:48] LABS: EOSINOPHILS % (AUTO) 0.2 % (0-6); HEMATOCRIT 26.4 % (35.0-45.0); HEMOGLOBIN 8.9 g/dl (12.0-16.0); LYMPHOCYTES # (AUTO) 2.7 X10'3 (1.1-4.8); LYMPHOCYTES % (AUTO) 31.7 % (21-51); MEAN CORPUSCULAR HEMOGLOBIN 29.6 PG (27.0-31.0); MEAN CORPUSCULAR HGB CONC 33.6 g/dL (33.0-36.5); MONOCYTES % (AUTO) 11.6 % (2-12); NEUTROPHILS # (AUTO) 4.7 X10'3 (1.8-7.7); NEUTROPHILS % (AUTO) 55.5 % (42-75); PLATELET COUNT 434 X10'3 (140-440); RED CELL DISTRIBUTION WIDTH 22.3 % (11.5-14.5)
[2019-07-26 05:50] LABS: ALANINE AMINOTRANSFERASE 79 U/L (12-78); ALBUMIN 1.9 G/DL (3.4-5.0); ALBUMIN/GLOBULIN RATIO 0.5 (1.1-1.5); ALKALINE PHOSPHATASE 321 IU/L (46-116); ANION GAP 13 (8-16); ASPARTATE AMINO TRANSFERASE 46 U/L (10-37); BILIRUBIN,TOTAL 1.1 MG/DL (0.1-1.0); BLOOD UREA NITROGEN 19 MG/DL (7-18); BUN/CREATININE RATIO 4.3 (6.6-38.0); CALCIUM 8.3 MG/DL (8.5-10.1); CHLORIDE 101 MMOL/L (99-107); CREATININE 4.42 MG/DL (0.40-0.90); GLUCOSE 149 MG/DL (70-104); MAGNESIUM 1.4 MG/DL (1.5-2.4); PHOSPHORUS 4.1 MG/DL (2.3-4.5); SODIUM 134 MMOL/L (135-145); TOTAL CARBON DIOXIDE 19.6 MMOL/L (24-32); TOTAL PROTEIN 5.7 G/DL (6.4-8.2); eGFR 11 ML/MIN
[2019-07-26 06:00] VITALS: BP 105/74
--- NOTE | 2019-07-26 06:05 | NUR ---
Problems reprioritized. Patient report given, questions answered & plan of care reviewed with CONSTANTINE Whitley.
--- NOTE | 2019-07-26 06:17 | NUR ---
Patient in room PCU 3018. I have received report from CONSTANTINE Meadows and had the opportunity to ask questions and assume patient care.
[2019-07-26 06:26] LABS: TOTAL CELLS COUNTED 100
[2019-07-26 06:27] LABS: ANISOCYTOSIS 3+; HYPOCHROMASIA 1+; PLATELET ESTIMATE NORMAL; POLYCHROMASIA FEW
[2019-07-26 06:28] LABS: GIANT PLATELET FEW; LARGE PLATELETS FEW; STOMATOCYTES 1+
[2019-07-26] MEDS: furosemide 40mg/4ml inj IV SCH ×2 (07:39→19:32)
[2019-07-26] MEDS: heparin, porcine 5000 units/ml vial SQ SCH ×2 (07:39→19:32)
[2019-07-26] MEDS: metroNIDAZOLE 500mg tablet PO SCH ×2 (07:40→15:57)
[2019-07-26] MEDS: thiamine 100mg tablet PO SCH (07:40)
[2019-07-26] MEDS: lactobacillus rhamnosus 10,000 MMU CELLS/CAPSULE PO SCH ×2 (07:40→19:32)
[2019-07-26] MEDS: pantoprazole 40mg Tablet.DR PO SCH ×2 (07:40→19:32)
[2019-07-26] MEDS: FLUoxetine 10mg capsule PO SCH (07:40)
[2019-07-26] MEDS: multivitamins, therapeutics tablet PO SCH (07:40)
[2019-07-26] MEDS: docusate sod 100mg capsule PO SCH ×2 (07:41→19:33)
[2019-07-26] MEDS: emollient combination-Eucerin 250 ML LOTION TP SCH ×2 (07:51→20:00)
[2019-07-26] MEDS ORDERED: heparin 1,000 units/ml 10ml inj HE ONE ×2 (08:00)
[2019-07-26] MEDS ORDERED: normal saline 1000ml 250 ML IV PRN (08:00)
[2019-07-26] MEDS ORDERED: heparin 1,000unit/ml 10ml vial 10 ML IV ONE (08:00)
[2019-07-26] MEDS ORDERED: epoetin 20,000 units/ml inj IV ONE (08:00)
[2019-07-26] MEDS: insulin Lispro (HumaLOG) vial - multi-dose SQ SCH (09:07)
--- NOTE | 2019-07-26 09:53 | NUR ---
Spoke with Dr. Acosta about magnesium replacement (M.4). Does not want to replace at this time.
[2019-07-26 11:00] VITALS: BP 132/93
[2019-07-26 15:00] VITALS: BP 122/83
--- NOTE | 2019-07-26 18:10 | NUR ---
Problems reprioritized. Patient report given, questions answered & plan of care reviewed with Jeremy FITCH. Patient is stable at time of report given.
--- NOTE | 2019-07-26 18:30 | NUR ---
Patient in room PCU 3018. I have received report from CONSTANTINE Whitley and CONSTANTINE Viera and had the opportunity to ask questions and assume patient care. Patient saline locked and on room air. Stable at this time. Will continue to monitor closely.
[2019-07-26 19:00] VITALS: BP 120/74
[2019-07-26] MEDS: insulin glargine (Lantus) pen - multi-dose SQ SCH (21:00)
[2019-07-26] MEDS: ondansetron/PF 4mg/2ml inj IV PRN (21:08)
--- NOTE | 2019-07-26 23:12 | NUR ---
Patient transferred via [facility] by [email or web address] at [id number]. Patient alert and oriented, on room air, and with 20 G in L AC. 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
== END 2019-07-26 22:54 | DRG 133 ==
LOC: ER 22:18 → PCU 3S 07-24 01:46
PROVIDERS: ADMIT Internal Medicine Critical Care Medicine
PROC: 5A09357 Assistance with Respiratory Ventilation, Less than 24 Consecutive Hours, Continuous Positive Airway Pressure (ICD-10-PCS; principal; 2019-07-24)
PROC: 5A1D70Z Performance of Urinary Filtration, Intermittent, Less than 6 Hours Per Day (ICD-10-PCS; 2019-07-26)
DX: J96.01 Acute respiratory failure with hypoxia (principal); N17.9 Acute kidney failure, unspecified; J18.9 Pneumonia, unspecified organism; E11.22 Type 2 diabetes mellitus with diabetic chronic kidney disease; E87.70 Fluid overload, unspecified; I12.9 Hypertensive chronic kidney disease with stage 1 through stage 4 chronic kidney disease, or unspecified chronic kidney disease; I45.81 Long QT syndrome; K52.9 Noninfective gastroenteritis and colitis, unspecified; F12.90 Cannabis use, unspecified, uncomplicated; F32.9 Major depressive disorder, single episode, unspecified; N18.9 Chronic kidney disease, unspecified; Z98.891 History of uterine scar from previous surgery; Z79.4 Long term (current) use of insulin
CPT/HCPCS: 36415; 36600; 71045; 80053; 82140; 82803; 82948; 83036; 83735; 83880; 84100; 84484; 85018; 85025; 85379; 85610; 87081; 93005; 94660; 94760; 96374; 97110; 97112; 97116; 97161; 97530; 99291; C9113; G0257; G0378; J0692; J1644; J1815; J1940; J2405; J3490; Q4081

== ENCOUNTER 2019-10-04 13:52 | Emergency (ER) | payer MEDICAID, OTHER ==
[~2019-10-04] VITALS: Ht 165.1 cm; Wt 45.9 kg
[~2019-10-04 13:52] MED LIST changes: +ALB0.5UD IH; +CEFE1FRO IV; +CHLO25CA10 PO; +DOCU-148; +FLUO10CA28 PO; +LACT10SO PO; +METR500T IV; +MULT1TAB74 PO; +PANT-47 IV; +THIA100T66 PO
[2019-10-04 13:56] VITALS: BP 138/93
[2019-10-04] MEDS ORDERED: FLUO20CA39 PO (14:44)
== END 2019-10-04 15:04 | disposition home or self-care (01) ==
LOC: ER 13:53
DX: F32.9 Major depressive disorder, single episode, unspecified (principal); I10 Essential (primary) hypertension; E11.9 Type 2 diabetes mellitus without complications; F12.90 Cannabis use, unspecified, uncomplicated; F10.99 Alcohol use, unspecified with unspecified alcohol-induced disorder; Z76.0 Encounter for issue of repeat prescription; Z98.890 Other specified postprocedural states; Z79.4 Long term (current) use of insulin; Z79.899 Other long term (current) drug therapy; Y90.9 Presence of alcohol in blood, level not specified
CPT/HCPCS: 99283

== ENCOUNTER 2019-10-07 08:14 | Emergency (ER) | payer MEDICAID, OTHER ==
[~2019-10-07] VITALS: Ht 165.1 cm; Wt 45.9 kg
[~2019-10-07 08:14] MED LIST changes: +FLUO20CA39 PO
[2019-10-07] MEDS ORDERED: normal saline 1000ML IV soln IVB ONE (08:40)
[2019-10-07] MEDS ORDERED: insulin regular, human 10 units/0.1 ml syringe IV ONE (08:40)
[2019-10-07 09:06] LABS: URINE HCG NEGATIVE (NEG)
[2019-10-07 09:07] LABS: BASOPHILS % (AUTO) 0.3 % (0-1); EOSINOPHILS % (AUTO) 0.4 % (0-6); HEMATOCRIT 39.8 % (35.0-45.0); HEMOGLOBIN 13.8 g/dl (12.0-16.0); LYMPHOCYTES # (AUTO) 1.8 X10'3 (1.1-4.8); LYMPHOCYTES % (AUTO) 19.5 % (21-51); MEAN CORPUSCULAR HEMOGLOBIN 29.4 PG (27.0-31.0); MEAN CORPUSCULAR HGB CONC 34.7 g/dL (33.0-36.5); MEAN CORPUSCULAR VOLUME 84.9 FL (78-98); MEAN PLATELET VOLUME 8.3 FL (7.4-10.4); MONOCYTES # (AUTO) 0.5 X10'3 (0-0.9); MONOCYTES % (AUTO) 5.9 % (2-12); NEUTROPHILS # (AUTO) 6.7 X10'3 (1.8-7.7); NEUTROPHILS % (AUTO) 73.9 % (42-75); PLATELET COUNT 354 X10'3 (140-440); RED BLOOD COUNT 4.69 X10'6 (4.20-5.60); RED CELL DISTRIBUTION WIDTH 13.5 % (11.5-14.5)
[2019-10-07 09:10] LABS: CLARITY,URINE SLIGHTLY CLOUDY (Clear); COLOR,URINE YELLOW (Yellow); GLUCOSE, URINE >=1000 mg/dl (Neg); KETONES,URINE NEGATIVE (Neg); LEUKOCYTE ESTERASE ,URINE NEGATIVE (Neg); NITRITES, URINE NEGATIVE (Neg); OCCULT BLOOD,URINE TRACE-INTACT (Neg); PROTEIN,URINE NEGATIVE (Neg); UROBILINOGEN,URINE 0.2 E.U/dL (0.2-1.0)
[2019-10-07 09:12] LABS: UA COLLECTION TYPE CLN CATCH MIDSTREAM
[2019-10-07 09:26] LABS: ALANINE AMINOTRANSFERASE 25 U/L (12-78); ALBUMIN 3.5 G/DL (3.4-5.0); ALKALINE PHOSPHATASE 89 IU/L (46-116); ANION GAP 10 (8-16); ASPARTATE AMINO TRANSFERASE 24 U/L (10-37); BILIRUBIN,TOTAL 0.3 MG/DL (0.1-1.0); BLOOD UREA NITROGEN 8 MG/DL (7-18); BUN/CREATININE RATIO 9.5 (6.6-38.0); CALCIUM 9.4 MG/DL (8.5-10.1); CHLORIDE 101 MMOL/L (99-107); CREATININE 0.84 MG/DL (0.40-0.90); MAGNESIUM 1.5 MG/DL (1.5-2.4); SODIUM 136 MMOL/L (135-145); TOTAL CARBON DIOXIDE 25.5 MMOL/L (24-32); TOTAL PROTEIN 6.9 G/DL (6.4-8.2); eGFR 73 ML/MIN
[2019-10-07 09:28] LABS: SQUAMOUS EPITHELIAL CELL,UR MODERATE /LPF (FEW)
[2019-10-07 09:29] LABS: BACTERIA,URINE FEW /HPF (Neg)
[2019-10-07 09:29] LABS: GLUCOSE 458 MG/DL (70-104); POTASSIUM 2.8 MMOL/L (3.5-5.1)
[2019-10-07] MEDS ORDERED: potassium Cl 20 mEq SR tablet PO STA ×2 (09:29→10:03)
[2019-10-07 09:30] LABS: RBC,URINE 0-2 /HPF (0-2); WBC,URINE 0-4 /HPF (0-4); YEAST FEW /HPF (NEGATIVE)
[2019-10-07] MEDS ORDERED: potassium Cl 10 mEq/100mL bag IV ONE (09:30)
[2019-10-07 09:37] LABS: PHOSPHORUS 3.7 MG/DL (2.3-4.5)
[2019-10-07] MEDS ORDERED: INSU100V11 (10:11)
[2019-10-07] MEDS ORDERED: INSU100I31 (10:11)
[2019-10-07] MEDS ORDERED: INSU100I45 SQ (10:19)
[2019-10-07 10:29] VITALS: BP 111/72
== END 2019-10-07 10:37 | disposition home or self-care (01) ==
LOC: ER 08:15
DX: E11.65 Type 2 diabetes mellitus with hyperglycemia (principal); E87.6 Hypokalemia; I10 Essential (primary) hypertension; F32.9 Major depressive disorder, single episode, unspecified; Z98.890 Other specified postprocedural states; Z79.4 Long term (current) use of insulin; Z79.899 Other long term (current) drug therapy
CPT/HCPCS: 36415; 80053; 81001; 81025; 82009; 82948; 83735; 84100; 85025; 96361; 96365; 96375; 99283; J1815; J3480; J7030; 96374

== ENCOUNTER 2021-05-19 09:24 | Emergency (ER) | payer MEDICAID ==
[~2021-05-19] VITALS: Ht 165.1 cm; Wt 61.4 kg
[~2021-05-19 09:24] MED LIST changes: -FLUO20CA39 PO; +INSU100I31; +INSU100I45 SQ; +INSU100V11; -LACT10SO PO; +LACT10SO3 PO; +MULT-620 PO; -MULT1TAB74 PO
[2021-05-19] MEDS ORDERED: ondansetron/PF 4mg/2ml inj IV ONE (09:45)
[2021-05-19] MEDS ORDERED: diazepam inj 5 MG/ML inj. IV ONE (09:45)
[2021-05-19] MEDS ORDERED: fentaNYL/PF 50MCG/1 ML 2ML syringe IV ONE (09:45)
[2021-05-19] MEDS ORDERED: ONDA4TAB6 PO (14:02)
[2021-05-19] MEDS ORDERED: HYDR-3972 PO (14:02)
[2021-05-19 14:50] VITALS: BP 106/70
[2021-05-19] MEDS ORDERED: HYDROcodone/acetaminophen 10/325mg tab PO ONE (14:50)
[2021-05-19] MEDS ORDERED: ondansetron 4mg rapidly disintigrating tab PO ONE (14:50)
[2021-05-19] MEDS ORDERED: WALKERFR (14:52)
== END 2021-05-19 14:57 | disposition home or self-care (01) ==
LOC: ER 09:24
DX: S32.19XA Other fracture of sacrum, initial encounter for closed fracture (principal); I10 Essential (primary) hypertension; E11.9 Type 2 diabetes mellitus without complications; F32.9 Major depressive disorder, single episode, unspecified; X58.XXXA Exposure to other specified factors, initial encounter; Y93.89 Activity, other specified; Y92.89 Other specified places as the place of occurrence of the external cause; Y99.8 Other external cause status; Z79.899 Other long term (current) drug therapy
CPT/HCPCS: 72148; 72195; 96374; 96375; 99285; J2405; J3010; J3360

== ENCOUNTER 2025-06-19 13:28 | Emergency (ER) | payer SELFPAY ==
[~2025-06-19] VITALS: Ht 162.6 cm; Wt 50.0 kg
[~2025-06-19 13:28] MED LIST changes: -INSU100I45 SQ; +INSU100I61 SQ; +LACT-373 PO; -LACT10SO3 PO; +ONDA4TAB6 PO; +WALKERFR
[2025-06-19 14:39] LABS: MEAN PLATELET VOLUME 7.8 FL (7.4-10.4); RED CELL DISTRIBUTION WIDTH 13.3 % (11.5-14.5)
[2025-06-19 15:06] LABS: CREATININE 0.82 MG/DL (0.40-0.90); TOTAL CARBON DIOXIDE 20.2 MMOL/L (24-32); eCRCL 65 ML/MIN; eGFR 74 ML/MIN
[2025-06-19 16:37] LABS: ABG BASE EXCESS -0.9 mmol/L (-2.0-3.0); ABG HCO3 19.6 mmol/L (21.0-28.0); ABG OXYGEN SATURATION 98.1 % (94.0-98.0); ABG PCO2 (T) 22.9 mmHg (32.0-45.0); ABG PH (T) 7.550 (7.350-7.450); ABG PO2 (T) 105.6 mmHg (83.0-108.0); ALLEN'S TEST POSITIVE; FCOHb 0.2 % (0.5-1.5); FHHb 1.9 % (0.0-5.0); FIO2 21.0 mmHg/%; FLOW 0 L/min; FMetHb 0.3 % (0.0-1.5); FO2Hb 97.6 % (94.0-98.0); MODE RA; PATIENT TEMPERATURE 37.1; TOTAL HEMOGLOBIN 13.6 G/dl (12.0-16.0)
--- NOTE | 2025-06-19 18:21 | Physician Documentation ---
History of Present Illness ~ Chief Complaint: Abdominal Pain w/vomiting Stated Complaint: VOMITING Time Seen by MD: 18:19 Primary Medical Doctor: nya mills Mode of Arrival: POV HPI Patient presents to the emergency room with nausea vomiting abdominal pain onset in the middle of the night last night. Patient states this has happened previously with diagnosis of DKA. She notes that four months ago she had to be admitted for DKA although she notes that her sugars were much higher at that time. Patient feels that the abdominal pain is likely from retching so much in his not feel like previous pancreatitis or intra-abdominal infection. She tried some Ativan for her symptoms for which she has previously been prescribed for nausea. Limited benefit. She denies any chest pain. Medication Reconciliation Allergies: Coded Allergies: No Known Allergies (Unverified , 06/19/25) Scheduled Chlordiazepoxide Hcl (Librium), 5 MG PO Q6PRN, (Reported) Docusate Sodium (Colace), BID, (Reported) Fluoxetine Hcl (Prozac), 1 CAP PO DAILY, (Reported) Insulin Lispro (Admelog), 1-11 UNITS SQ TID, (Reported) Insulin Lispro (Insulin Lispro Kwikpen U-100), 1 UNIT SQ CC Lactulose (Lactulose), 30 ML PO Q6H, (Reported) Metronidazole (Flagyl), 500 MG IV Q8H, (Reported) Multivitamins (Multivitamins), 1 TAB PO DAILY, (Reported) Ondansetron Hcl (Zofran), 1 TAB PO Q6H Pantoprazole Sodium (PROTONIX tablet), 40 MG IV BID, (Reported) Thiamine Hcl (Vitamine B-1), 100 MG PO DAILY, (Reported) Scheduled PRN Albuterol Sulfate Nebs* (Proventil Nebs*), IH HS PRN for SOB or wheezing, (Reported) Miscellaneous Medications Cefepime Hcl/Dextrose, Iso-Osm (Cefepime 1 Gm Injection), 1 GM IV, (Reported) Insulin Glargine,Hum.rec.anlog (Basaglar Kwikpen U-100), (Reported) Insulin Lispro (Humalog), (Reported) Durable Medical Equipment Walker, Front Wheeled (Walker, Front-wheeled), UNIT, (DME) Past Medical History Past Medical History: Hypertension, Pancreatitis, Dialysis, Diabetes, Depression Past Surgical History: Patient History: FH: alcoholism FATHER MOTHER Alcohol Use: Sober Drug Use: none Lives with: Spouse Lives In: Home Review of Systems ROS All review of systems negative except as per HPI Physical Exam Vital Signs: Temperature: 98.7, Source: Oral, Heart Rate: 99, Respiratory Rate: 15, BP: 127/69, Pulse Oximetry: 100, Weight: 50.000 Oxygen Flow Rate: 0 Physical Exam General: Patient is awake, alert, oriented x4 in no acute distress Head: Normocephalic and atraumatic. Eyes: Conjunctival normal. EOMI. PERRL. ENT: Mucous membranes dry. Neck: Supple, trachea is midline. Chest: Clear to auscultation bilaterally without rales, rhonchi, or wheezes. There is no accessory muscle use or retractions. Cardiac: RRR without murmurs, gallops, or rubs. Abd: Soft, nondistended, mild diffuse tenderness to palpation without peritonitis Progress Progress Note Patient is feeling better in his now passed the p.o. challenge Results/Orders Results/Orders Orders - VÍCTOR GARCIA MD Cult Urine + Caret Ct (06/19/25 19:08) Completed Orders - VÍCTOR GARCIA MD Hcg, Ur Ql (06/19/25 18:21) Normal Saline 1000ml (0.9% Sodium Chlori (06/19/25 18:30) Ringers Solution, Lacted (Lactated Ringe (06/19/25 18:30) Ondansetron Inj. (Zofran 4mg/2ml Vial) (06/19/25 18:30) Lorazepam Inj (Ativan Inj) (06/19/25 18:30) Hs Troponin I W Calculations (06/19/25 18:30) Ua W/Microscopic, Cult If Ind (06/19/25 18:26) Medications Received in ER Medications (Trade) Dose Ordered Sig/E[place] Route PRN Reason Start Time Stop Time Status Last Admin Dose Admin (0.9% sodium chloride (NS) 1000ml IV soln) 2,000 ml ONCE ONCE IVB 06/19/25 18:30 06/19/25 18:31 DC 06/19/25 18:52 2,000 ML (lactated ringers solution) 1,000 ml ONCE ONCE IV 06/19/25 18:30 06/19/25 18:31 DC 06/19/25 20:02 1,000 ML (Zofran 4mg/2ml vial) 8 mg ONCE ONCE IV 06/19/25 18:30 06/19/25 18:31 DC 06/19/25 18:35 8 MG (Ativan inj) 1 mg ONCE ONCE IV 06/19/25 18:30 06/19/25 18:31 DC 06/19/25 18:35 1 MG Vital Signs 06/19/25 06/19/25 06/19/25 06/19/25 13:34 16:36 17:04 17:05 Temp 98.9 98.7 Pulse 98 99 Resp 16 19 15 B/P (MAP) 138/67 127/69 (88) Pulse Ox 99 100 O2 Flow Rate 0 06/19/25 19:10 Pulse 88 Resp 19 B/P (MAP) 126/71 (89) Pulse Ox 100 O2 Flow Rate 0 Laboratory Tests Test 06/19/25 13:37 06/19/25 14:31 06/19/25 16:30 06/19/25 17:33 Glucometer 240 H 285 H White Blood Count 12.3 H Red Blood Count 4.64 Hemoglobin 13.2 Hematocrit 38.5 Mean Corpuscular Volume 83.0 Mean Corpuscular Hemoglobin 28.4 Mean Corpuscular Hemoglobin Concent 34.2 Red Cell Distribution Width 13.3 Platelet Count 356 Mean Platelet Volume 7.8 Neutrophils (%) (Auto) 91.2 H Lymphocytes (%) (Auto) 6.9 L Monocytes (%) (Auto) 1.7 L Eosinophils (%) (Auto) 0 Basophils (%) (Auto) 0.2 Neutrophils # (Auto) 11.2 H Lymphocytes # (Auto) 0.9 L Monocytes # (Auto) 0.2 Eosinophils # (Auto) 0.0 Basophils # (Auto) 0.0 CBC Comment Sodium Level 140 Potassium Level 3.7 Chloride Level 103 Carbon Dioxide Level 20.2 L Anion Gap 17 H Blood Urea Nitrogen 6 L Creatinine 0.82 Estimated GFR/1.73 m2 74 BUN/Creatinine Ratio 7.3 L Glucose Level 284 H Calcium Level 9.2 Magnesium Level 1.5 Total Bilirubin 0.5 Aspartate Amino Transf (AST/SGOT) 28 Alanine Aminotransferase (ALT/SGPT) 29 Alkaline Phosphatase 128 H Troponin I High Sensitivity 4 Total Protein 7.3 Albumin 3.8 Globulin 3.5 Albumin/Globulin Ratio 1.1 Chemistry Comments Blood Gas Specimen Type Arterial Blood Gas Puncture Site Rr O2 Saturation 98.1 H Arterial Blood pH (Temp corrected) 7.550 H Arterial Blood pCO2 (Temp correct) 22.9 L Arterial Blood pO2 (Temp corrected) 105.6 Arterial Blood PO2/FiO2 Ratio 5.00 Arterial Blood HCO3 19.6 L Arterial Blood Base Excess -0.9 Arterial Blood Oxyhemoglobin 97.6 Arterial Blood Carboxyhemoglobin 0.2 L Arterial Blood Methemoglobin 0.3 Arterial Blood Deoxyhemoglobin 1.9 Ben Test Positive Blood Gas Hemoglobin 13.6 Blood Gas Temperature 37.1 Blood Gas Liter Flow 0 Blood Gas Modality Ra FiO2 21.0 Blood Gas Critical Value Called To Anita prado traffic engineering director Test 06/19/25 18:26 Urine Specimen Description Cln catch midstream Urine Color Yellow Urine Clarity Slightly cloudy Urine pH 6.0 Urine Specific [place] 1.020 Urine Protein Negative Urine Glucose (UA) >=1000 H Urine Ketones >=80 Urine Occult Blood Negative Urine Nitrite Negative Urine Bilirubin Negative Urine Urobilinogen 0.2 Urine Leukocyte Esterase Negative Urine RBC 3-10 Urine WBC 5-10 H Urine Squamous Epithelial Cells Moderate Urine Transitional Epithelial Cells Few Urine Renal Cells Few Urine Amorphous Urates 1+ Urine Bacteria 1+ Urine Mucus Few Urine Culture Indicated Indicated Volume Urine Centrifuged 10 ml Urine HCG, Qualitative Negative Urine Comment Microbiology Date/Time Source Procedure Growth Status 06/19/25 19:08 Urine Clean Catch Midstream Urine Culture - Preliminary Culture received. Resulted Medical Decision Making Findings Patient presents to the emergency room with nausea vomiting that has per HPI. Differentials include but are not limited to dehydration, acid-base disturbance, diabetic ketoacidosis, hyperosmotic state therefore emergent labs and imaging indicated. Patient does have that has anion gap acidosis but ABG reveals that she is actually alkalotic and I believe this is secondary to significant dehydration. She has received 3 L of IV fluids in his now tolerating p.o.. He had not feel repeat labs is necessary. ER precautions discussed. Given patient's response to therapy and overall presentation he had not feel patient requires CT scan of the abdomen at this time although intra-abdominal infectio n/obstruction was considered. Departure Disposition: HOME / SELF CARE / HOMELESS Impression: Primary Impression: Acute gastritis Condition: Improved Discharge Instructions: Gastritis, Adult, Dehydration, Adult Referrals: NO PRIMARY CARE PROVIDER (PCP) Prescriptions Ondansetron 8mg ODT (Ondansetron Odt) 8 Mg Tab.rapdis 1 TAB PO Q6H for nausea/vomiting for 3 Days, #12 TAB 0 Refills Prov: VÍCTOR GARCIA MD 06/19/25 Education Educated: Patient Educated regarding: diagnosis, treatment, need for follow up Signature Scribe Signature: No scribe Attestation: The note accurately reflects work and decisions made by me.Víctor Garcia MD 06/19/25 20:32 VÍCTOR GARCIA MD Jun 19, 2025 18:21
[2025-06-19] MEDS: ondansetron/PF 4mg/2ml inj IV ONE (18:35)
[2025-06-19] MEDS: normal saline 1000ML IV soln IVB ONE (18:52)
[2025-06-19 18:58] LABS: URINE HCG NEGATIVE (NEG)
[2025-06-19 19:00] LABS: LEUKOCYTE ESTERASE ,URINE NEGATIVE (Neg); NITRITES, URINE NEGATIVE (Neg); OCCULT BLOOD,URINE NEGATIVE (Neg)
[2025-06-19 19:02] LABS: UA COLLECTION TYPE CLN CATCH MIDSTREAM
[2025-06-19 19:06] LABS: SQUAMOUS EPITHELIAL CELL,UR MODERATE /LPF (FEW)
[2025-06-19 19:07] LABS: AMORPHOUS URATES 1+; MUCUS STRANDS FEW /LPF (Neg); RENAL CELLS, URINE FEW /HPF
[2025-06-19] MEDS: ringers solution, lactated 1000ml IV soln IV ONE (20:02)
[2025-06-19] MEDS ORDERED: ONDA-245 PO (20:32)
[2025-06-19] MEDS: insulin regular, human 10 units/0.1 ml syringe IV ONE (20:54)
[2025-06-19] MEDS: metoclopramide 5 mg/ml inj IM ONE (21:27)
[2025-06-19] MEDS: insulin regular, human 10 units/0.1 ml syringe SQ ONE ×2 (21:32→21:45)
[2025-06-19 21:56] VITALS: BP 133/77; PULSE 89; RESP 16; TEMP 98.7; O2SAT 99
== END 2025-06-19 22:03 | disposition home or self-care (01) ==
LOC: ER 13:29
DX: K29.00 Acute gastritis without bleeding (principal); I10 Essential (primary) hypertension; E11.10 Type 2 diabetes mellitus with ketoacidosis without coma; F32.A Depression, unspecified; Z79.899 Other long term (current) drug therapy; Z99.2 Dependence on renal dialysis; Z79.4 Long term (current) use of insulin
CPT/HCPCS: 36415; 36600; 80053; 81001; 81025; 82803; 82948; 83735; 84484; 85018; 85025; 87088; 96361; 96372; 96374; 96375; 99285; J1815; J2060; J2405; J2765; J7030; J7120